=== PATIENT | male | born 1985 | race Caucasian/White ===

== ENCOUNTER 2020-02-29 19:18 | Inpatient (IN) | payer OTHER ==
[2020-02-29] MEDS ORDERED: Sodium Chloride 0.9% 1,000 ML IV ONE (19:45)
--- NOTE | 2020-02-29 20:05 | EDM.PDOC ---
ED HPI GENERAL MEDICAL PROBLEM - General Chief Complaint: General Stated Complaint: POSSIBLE HEATS STROKE Time Seen by Provider: 02/29/20 19:32 Source of Information: Reports: Patient History Limitations: Reports: No Limitations - History of Present Illness INITIAL COMMENTS - FREE TEXT/NARRATIVE: HISTORY AND PHYSICAL: History of present illness: Patient is a 35-year-old male who presents to the emergency room with complaints of fevers, nausea, body aches and generally feeling unwell. He states he was outside in the 90 degree heat for 16 hours during the workday yesterday when he started to feel unwell. States he went home and tried to drink fluids and get to bed early, woke up this morning with body aches and fevers of 99-103F. He is concerned he may have heatstroke. Patient denies any headache, change in vision, syncope or near syncope. Denies any chest pain, back pain, shortness of breath or cough. Denies any abdominal pain, vomiting, diarrhea, constipation or dysuria. Patient has been eating and drinking appropriately. No recent travel or exposure to anyone who is been ill. Review of systems: As per history of present illness and below otherwise all systems reviewed and negative. Past medical history: As per history of present illness and as reviewed below otherwise noncontributory. Surgical history: As per history of present illness and as reviewed below otherwise noncontributory. Social history: See social history for further information Family history: As per history of present illness and as reviewed below otherwise noncontributory. Physical exam: General: Well-developed and well-nourished 35-year-old male. Alert and oriented. Nontoxic-appearing and in no acute distress. HEENT: Atraumatic, normocephalic, pupils equal and reactive bilaterally, negative for conjunctival pallor or scleral icterus, mucous membranes moist, TMs normal bilaterally, throat clear, neck supple, nontender, trachea midline. No drooling or trismus noted. No meningeal signs. No hot potato voice noted. Lungs: Clear to auscultation, breath sounds equal bilaterally, chest nontender. Heart: S1S2, tachycardic in the 100s with regular rhythm without overt murmur Abdomen: Soft, obese, nontender. Negative for masses or hepatosplenomegaly. Mild bilateral costovertebral tenderness. Skin: Intact, warm, dry. No lesions or rashes noted. Hematologic: No petechiae or purpra. Mucosa appropriate color and normal nail bed color and refill. Extremities: Atraumatic, moves all extremities per self without difficulty or deficits, negative for cords or calf pain. Neurovascular unremarkable. Neuro: Awake, alert, oriented. Cranial nerves II through XII unremarkable. Cerebellum unremarkable. Motor and sensory unremarkable throughout. Exam nonfocal. Notes: Patient has a leukocytosis of 19.75. He has few bacteria with 18-22 WBC. Blood cultures have been added. I will do a CT of the abdomen and pelvis as he states he has generalized abdominal pain, very vague on my evaluation. COVID negative. Patient's temperature has elevated since arrival. 1300mg of Tylenol was last taken at 6 PM. We will give patient Rocephin IV, CT of the abdomen and pelvis results are pending. Since arrival the patient has been up multiple times to void, saying that the urinary frequency is new. Dr Ordonez was consulted on this case, agreeable to admission to receive IV abx. Dr Condon will watch for CT results and change disposition and consult specialty if needed. Diagnostics: CBC, CMP, CPK, UA, EKG, COVID-19 Therapeutics: IV fluid, Rocephin, Toradol Impression: UTI Plan: Observation admission to med/surg Definitive disposition and diagnosis as appropriate pending reevaluation and review of above. Generalized Pain Score (Numeric/FACES): 3 - Related Data Allergies Allergy/AdvReac Type Severity Reaction Status Date / Time No Known Allergies Allergy Verified 02/29/20 23:08 Home Meds: Home Meds Dextroamphetamine/Amphetamine [Adderall 10 mg Tablet] 30 mg PO DAILY 02/29/20 [History] levoFLOXacin [Levaquin] 750 mg PO DAILY #4 tab 03/02/20 [Rx] ED ROS GENERAL - Review of Systems Review Of Systems: Comprehensive ROS is negative, except as noted in HPI. ED EXAM, GENERAL - Physical Exam Exam: See Below (See dictation) Course - Vital Signs Last Recorded V/S: Last Vital Signs Temp 97.4 F 03/02/20 12:30 Pulse 85 03/02/20 12:30 Resp 16 03/02/20 12:30 BP 146/84 H 03/02/20 12:30 Pulse Ox 94 L 03/02/20 12:30 - Orders/Labs/Meds Labs: Laboratory Tests 02/29/20 02/29/20 02/29/20 Range/Units 19:55 20:00 20:00 WBC 19.75 H (4.0-11.0) K/uL RBC 4.87 (4.50-5.90) M/uL Hgb 14.2 (13.0-17.0) g/dL Hct 40.6 (38.0-50.0) % MCV 83.4 (80.0-98.0) fL MCH 29.2 (27.0-32.0) pg MCHC 35.0 (31.0-37.0) g/dL RDW Std Deviation 38.8 (28.0-62.0) fl RDW Coeff of Licha 13 (11.0-15.0) % Plt Count 243 (150-400) K/uL MPV 9.40 (7.40-12.00) fL Neut % (Auto) 83.6 H (48.0-80.0) % Lymph % (Auto) 9.3 L (16.0-40.0) % [place] % (Auto) 6.9 (0.0-15.0) % Eos % (Auto) 0.1 (0.0-7.0) % Baso % (Auto) 0.1 (0.0-1.5) % Neut # (Auto) 16.5 H (1.4-5.7) K/uL Lymph # (Auto) 1.8 (0.6-2.4) K/uL [place] # (Auto) 1.4 H (0.0-0.8) K/uL Eos # (Auto) 0.0 (0.0-0.7) K/uL Baso # (Auto) 0.0 (0.0-0.1) K/uL Nucleated RBC % 0.0 /100WBC Nucleated RBCs # 0 K/uL Lactate (0.20-2.00) mmol/L Sodium 132 L (136-148) mmol/L Potassium 4.3 (3.5-5.1) mmol/L Chloride 98 (98-107) mmol/L Carbon Dioxide 24.0 (21.0-32.0) mmol/L BUN 8 (7.0-18.0) mg/dL Creatinine 0.8 (0.8-1.3) mg/dL Est Cr Clr Drug Dosing 144.15 mL/min Estimated GFR (MDRD) > 60.0 ml/min Glucose 122 H (74-106) mg/dL Hemoglobin A1c (4.5-6.2) % Calcium 8.1 L (8.5-10.1) mg/dL Magnesium (1.8-2.4) mg/dL Total Bilirubin 1.0 (0.2-1.0) mg/dL AST 52 H (15-37) IU/L ALT 36 (14-63) IU/L Alkaline Phosphatase 56 (46-116) U/L Creatine Kinase 184 (26-308) U/L Total Protein 8.0 (6.4-8.2) g/dL Albumin 3.4 (3.4-5.0) g/dL Globulin 4.6 H (2.6-4.0) g/dL Albumin/Globulin Ratio 0.7 L (0.9-1.6) Urine Color YELLOW Urine Appearance SLT CLOUDY Urine pH 6.0 (5.0-8.0) Ur Specific [place] <= 1.005 (1.001-1.035) Urine Protein NEGATIVE (NEGATIVE) mg/dL Urine Glucose (UA) NEGATIVE (NEGATIVE) mg/dL Urine Ketones NEGATIVE (NEGATIVE) mg/dL Urine Occult Blood MODERATE H (NEGATIVE) Urine Nitrite NEGATIVE (NEGATIVE) Urine Bilirubin NEGATIVE (NEGATIVE) Urine Urobilinogen 0.2 (<2.0) EU/dL Ur Leukocyte Esterase MODERATE H (NEGATIVE) Urine RBC 0-2 (0-2/HPF) Urine WBC 18-22 (0-5/HPF) Ur Epithelial Cells RARE (NONE-FEW) Amorphous Sediment RARE (NEGATIVE) Urine Bacteria FEW (NEGATIVE) Urine Mucus RARE (NONE-MOD) Chlamydia/GC Source C.trachomatis RNA (TMA) (Negative) COVID-19 (JIM) (NEGATIVE) N.gonorrhoeae RNA (TMA) (Negative) 02/29/20 02/29/20 02/29/20 Range/Units 20:00 20:10 20:54 WBC (4.0-11.0) K/uL RBC (4.50-5.90) M/uL Hgb (13.0-17.0) g/dL Hct (38.0-50.0) % MCV (80.0-98.0) fL MCH (27.0-32.0) pg MCHC (31.0-37.0) g/dL RDW Std Deviation (28.0-62.0) fl RDW Coeff of Licha (11.0-15.0) % Plt Count (150-400) K/uL MPV (7.40-12.00) fL Neut % (Auto) (48.0-80.0) % Lymph % (Auto) (16.0-40.0) % [place] % (Auto) (0.0-15.0) % Eos % (Auto) (0.0-7.0) % Baso % (Auto) (0.0-1.5) % Neut # (Auto) (1.4-5.7) K/uL Lymph # (Auto) (0.6-2.4) K/uL [place] # (Auto) (0.0-0.8) K/uL Eos # (Auto) (0.0-0.7) K/uL Baso # (Auto) (0.0-0.1) K/uL Nucleated RBC % /100WBC Nucleated RBCs # K/uL Lactate 1.2 (0.20-2.00) mmol/L Sodium (136-148) mmol/L Potassium (3.5-5.1) mmol/L Chloride (98-107) mmol/L Carbon Dioxide (21.0-32.0) mmol/L BUN (7.0-18.0) mg/dL Creatinine (0.8-1.3) mg/dL Est Cr Clr Drug Dosing mL/min Estimated GFR (MDRD) ml/min Glucose (74-106) mg/dL Hemoglobin A1c (4.5-6.2) % Calcium (8.5-10.1) mg/dL Magnesium (1.8-2.4) mg/dL Total Bilirubin (0.2-1.0) mg/dL AST (15-37) IU/L ALT (14-63) IU/L Alkaline Phosphatase (46-116) U/L Creatine Kinase (26-308) U/L Total Protein (6.4-8.2) g/dL Albumin (3.4-5.0) g/dL Globulin (2.6-4.0) g/dL Albumin/Globulin Ratio (0.9-1.6) Urine Color Urine Appearance Urine pH (5.0-8.0) Ur Specific [place] (1.001-1.035) Urine Protein (NEGATIVE) mg/dL Urine Glucose (UA) (NEGATIVE) mg/dL Urine Ketones (NEGATIVE) mg/dL Urine Occult Blood (NEGATIVE) Urine Nitrite (NEGATIVE) Urine Bilirubin (NEGATIVE) Urine Urobilinogen (<2.0) EU/dL Ur Leukocyte Esterase (NEGATIVE) Urine RBC (0-2/HPF) Urine WBC (0-5/HPF) Ur Epithelial Cells (NONE-FEW) Amorphous Sediment (NEGATIVE) Urine Bacteria (NEGATIVE) Urine Mucus (NONE-MOD) Chlamydia/GC Source Urine C.trachomatis RNA (TMA) Negative (Negative) COVID-19 (JIM) NEGATIVE (NEGATIVE) N.gonorrhoeae RNA (TMA) Negative (Negative) 03/01/20 03/01/20 03/01/20 Range/Units 05:18 05:18 05:18 WBC 18.55 H (4.0-11.0) K/uL RBC 4.29 L (4.50-5.90) M/uL Hgb 12.4 L (13.0-17.0) g/dL Hct 36.1 L (38.0-50.0) % MCV 84.1 (80.0-98.0) fL MCH 28.9 (27.0-32.0) pg MCHC 34.3 (31.0-37.0) g/dL RDW Std Deviation 38.8 (28.0-62.0) fl RDW Coeff of Licha 13 (11.0-15.0) % Plt Count 210 (150-400) K/uL MPV 9.10 (7.40-12.00) fL Neut % (Auto) 83.0 H (48.0-80.0) % Lymph % (Auto) 9.2 L (16.0-40.0) % [place] % (Auto) 7.4 (0.0-15.0) % Eos % (Auto) 0.2 (0.0-7.0) % Baso % (Auto) 0.2 (0.0-1.5) % Neut # (Auto) 15.4 H (1.4-5.7) K/uL Lymph # (Auto) 1.7 (0.6-2.4) K/uL [place] # (Auto) 1.4 H (0.0-0.8) K/uL Eos # (Auto) 0.0 (0.0-0.7) K/uL Baso # (Auto) 0.0 (0.0-0.1) K/uL Nucleated RBC % /100WBC Nucleated RBCs # K/uL Lactate (0.20-2.00) mmol/L Sodium 135 L (136-148) mmol/L Potassium 2.9 L (3.5-5.1) mmol/L Chloride 99 (98-107) mmol/L Carbon Dioxide 25.8 (21.0-32.0) mmol/L BUN 7 (7.0-18.0) mg/dL Creatinine 1.0 (0.8-1.3) mg/dL Est Cr Clr Drug Dosing 111.90 mL/min Estimated GFR (MDRD) > 60.0 ml/min Glucose 119 H (74-106) mg/dL Hemoglobin A1c (4.5-6.2) % Calcium 7.3 L (8.5-10.1) mg/dL Magnesium 1.4 L (1.8-2.4) mg/dL Total Bilirubin (0.2-1.0) mg/dL AST (15-37) IU/L ALT (14-63) IU/L Alkaline Phosphatase (46-116) U/L Creatine Kinase 62 (26-308) U/L Total Protein (6.4-8.2) g/dL Albumin (3.4-5.0) g/dL Globulin (2.6-4.0) g/dL Albumin/Globulin Ratio (0.9-1.6) Urine Color Urine Appearance Urine pH (5.0-8.0) Ur Specific [place] (1.001-1.035) Urine Protein (NEGATIVE) mg/dL Urine Glucose (UA) (NEGATIVE) mg/dL Urine Ketones (NEGATIVE) mg/dL Urine Occult Blood (NEGATIVE) Urine Nitrite (NEGATIVE) Urine Bilirubin (NEGATIVE) Urine Urobilinogen (<2.0) EU/dL Ur Leukocyte Esterase (NEGATIVE) Urine RBC (0-2/HPF) Urine WBC (0-5/HPF) Ur Epithelial Cells (NONE-FEW) Amorphous Sediment (NEGATIVE) Urine Bacteria (NEGATIVE) Urine Mucus (NONE-MOD) Chlamydia/GC Source C.trachomatis RNA (TMA) (Negative) COVID-19 (JIM) (NEGATIVE) N.gonorrhoeae RNA (TMA) (Negative) 03/01/20 Range/Units 05:18 WBC (4.0-11.0) K/uL RBC (4.50-5.90) M/uL Hgb (13.0-17.0) g/dL Hct (38.0-50.0) % MCV (80.0-98.0) fL MCH (27.0-32.0) pg MCHC (31.0-37.0) g/dL RDW Std Deviation (28.0-62.0) fl RDW Coeff of Licha (11.0-15.0) % Plt Count (150-400) K/uL MPV (7.40-12.00) fL Neut % (Auto) (48.0-80.0) % Lymph % (Auto) (16.0-40.0) % [place] % (Auto) (0.0-15.0) % Eos % (Auto) (0.0-7.0) % Baso % (Auto) (0.0-1.5) % Neut # (Auto) (1.4-5.7) K/uL Lymph # (Auto) (0.6-2.4) K/uL [place] # (Auto) (0.0-0.8) K/uL Eos # (Auto) (0.0-0.7) K/uL Baso # (Auto) (0.0-0.1) K/uL Nucleated RBC % /100WBC Nucleated RBCs # K/uL Lactate (0.20-2.00) mmol/L Sodium (136-148) mmol/L Potassium (3.5-5.1) mmol/L Chloride (98-107) mmol/L Carbon Dioxide (21.0-32.0) mmol/L BUN (7.0-18.0) mg/dL Creatinine (0.8-1.3) mg/dL Est Cr Clr Drug Dosing mL/min Estimated GFR (MDRD) ml/min Glucose (74-106) mg/dL Hemoglobin A1c 5.7 (4.5-6.2) % Calcium (8.5-10.1) mg/dL Magnesium (1.8-2.4) mg/dL Total Bilirubin (0.2-1.0) mg/dL AST (15-37) IU/L ALT (14-63) IU/L Alkaline Phosphatase (46-116) U/L Creatine Kinase (26-308) U/L Total Protein (6.4-8.2) g/dL Albumin (3.4-5.0) g/dL Globulin (2.6-4.0) g/dL Albumin/Globulin Ratio (0.9-1.6) Urine Color Urine Appearance Urine pH (5.0-8.0) Ur Specific [place] (1.001-1.035) Urine Protein (NEGATIVE) mg/dL Urine Glucose (UA) (NEGATIVE) mg/dL Urine Ketones (NEGATIVE) mg/dL Urine Occult Blood (NEGATIVE) Urine Nitrite (NEGATIVE) Urine Bilirubin (NEGATIVE) Urine Urobilinogen (<2.0) EU/dL Ur Leukocyte Esterase (NEGATIVE) Urine RBC (0-2/HPF) Urine WBC (0-5/HPF) Ur Epithelial Cells (NONE-FEW) Amorphous Sediment (NEGATIVE) Urine Bacteria (NEGATIVE) Urine Mucus (NONE-MOD) Chlamydia/GC Source C.trachomatis RNA (TMA) (Negative) COVID-19 (JIM) (NEGATIVE) N.gonorrhoeae RNA (TMA) (Negative) Meds: Medications Discontinued Medications Generic Name Dose Route Start Last Admin Trade Name Freq PRN Reason Stop Dose Admin Acetaminophen 325 mg 02/29/20 23:32 03/02/20 11:10 Tylenol PO 325 mg Q6H PRN Administration Pain/Fever Docusate Sodium 100 mg 03/01/20 15:18 Colace PO DAILY PRN Constipation Sodium Chloride 1,000 mls @ 999 mls/hr 02/29/20 19:45 02/29/20 20:04 Normal Saline IV 02/29/20 20:45 999 mls/hr STAT ONE Administration Ciprofloxacin/Dextrose 400 mg/ 200 mls @ 200 mls/hr 02/29/20 21:30 Premix IV Q12H ZARINA Ceftriaxone Sodium/Dextrose 1 50 mls @ 100 mls/hr 02/29/20 21:29 02/29/20 22:09 gm/ Premix IV 02/29/20 21:58 100 mls/hr ONETIME ONE Administration Ceftriaxone Sodium/Dextrose 1 50 mls @ 100 mls/hr 03/01/20 10:00 gm/ Premix IV Q24H ZARINA Sodium Chloride 1,000 mls @ 125 mls/hr 02/29/20 23:45 03/02/20 10:53 Normal Saline IV 125 mls/hr ASDIRECTED ZARINA Administration Sodium Chloride 1,000 mls @ 999 mls/hr 03/01/20 00:30 03/01/20 00:49 Normal Saline IV 03/01/20 01:30 999 mls/hr BOLUS ONE Administration Potassium Chloride 40 meq/ 100 mls @ 25 mls/hr 03/01/20 06:45 03/01/20 07:46 Premix IV 03/01/20 10:44 Not Given ONETIME ONE Potassium Chloride 40 meq/ 100 mls @ 25 mls/hr 03/01/20 08:00 03/01/20 08:02 Premix IV 03/01/20 11:59 25 mls/hr ONETIME ONE Administration Magnesium Sulfate 4 gm/ Premix 100 mls @ 50 mls/hr 03/01/20 08:00 03/01/20 08:34 IV 03/01/20 09:59 Not Given ONETIME ONE Ceftriaxone Sodium/Dextrose 1 50 mls @ 100 mls/hr 03/01/20 21:00 gm/ Premix IV Q24H ZARINA Magnesium Sulfate 4 gm/ Premix 100 mls @ 50 mls/hr 03/01/20 12:00 03/01/20 13:56 IV 03/01/20 13:59 50 mls/hr ONETIME ONE Administration Lactated Ringer's 1,000 mls @ 999 mls/hr 03/01/20 10:40 03/01/20 10:58 Ringers, Lactated IV 03/01/20 11:40 999 mls/hr .BOLUS ONE Administration Ceftriaxone Sodium/Dextrose 2 50 mls @ 100 mls/hr 03/01/20 11:00 03/02/20 10:13 gm/ Premix IV 100 mls/hr Q24H ZARINA Administration Ibuprofen 400 mg 03/01/20 15:18 03/01/20 19:42 Motrin PO 400 mg Q6H PRN Administration Pain Iopamidol 100 ml 02/29/20 21:30 02/29/20 21:31 Isovue-370 (76%) IVPUSH 02/29/20 21:31 100 ml ONETIME STA Administration Ketorolac Tromethamine 30 mg 02/29/20 21:26 02/29/20 22:10 Toradol IVPUSH 02/29/20 21:27 30 mg ONETIME ONE Administration Ondansetron HCl 4 mg 03/01/20 15:18 Zofran IVPUSH Q4H PRN Nausea Potassium Chloride 40 meq 03/01/20 06:41 03/01/20 07:46 Klor-Con M20 PO 03/01/20 06:42 Not Given ONETIME ONE Potassium Chloride 40 meq 03/01/20 08:00 03/01/20 07:34 Klor-Con M20 PO 03/01/20 08:01 40 meq ONETIME ONE Administration Departure - Departure Time of Disposition: 12:38 Disposition: Refer to Observation Clinical Impression: Complicated UTI (urinary tract infection) - Discharge Information Sepsis Event Note (ED) - Evaluation Sepsis Screening Result: No Definite Risk
[2020-02-29 20:30] LABS: BLOOD UREA NITROGEN,BUN 8 mg/dL (7.0-18.0); CHLORIDE,CL 98 mmol/L (98-107); GLUCOSE RANDOM 122 mg/dL (74-106); POTASSIUM,K 4.3 mmol/L (3.5-5.1); SODIUM,NA 132 mmol/L (136-148)
[2020-02-29] MEDS ORDERED: Ketorolac 30 MG/ML SDV IVPUSH ONE (21:26)
[2020-02-29] MEDS ORDERED: cefTRIAXone 1 GM in Premix Bag 1 BAG IV ONE (21:29)
[2020-02-29] MEDS ORDERED: Iopamidol 755 Mg/ML 100 ML Bottle IVPUSH STA (21:30)
[2020-02-29] MEDS ORDERED: Ciprofloxacin in D5W 400 MG in Premix Bag 1 BAG IV SCH ×2 (21:30)
--- NOTE | 2020-02-29 22:04 | CT ---
Indication: Generalized abdominal pain, UTI, bilateral flank pain Technique: Contrast enhanced axial CT imaging through the abdomen and pelvis. 100 mL Isovue 370 contrast agent was administered intravenously. Sagittal and coronal reconstructions are provided. Comparison: None Findings: There is decreased attenuation of the liver parenchyma, suggesting steatosis. The portal vein, hepatic veins, and IVC patent. Cholecystectomy clips are noted. The spleen, pancreas, and adrenal glands are normal. There is normal renal enhancement without hydronephrosis. There is no perinephric edema or fluid collection. There is mild urinary bladder wall thickening, compatible with cystitis. There is normal caliber of the abdominal aorta. There is no abdominal lymphadenopathy. The stomach and duodenum are unremarkable. There are no abnormally dilated small bowel loops. The appendix is absent. There is no colonic wall thickening. No inflammatory changes are demonstrated in the mesentery. There is no free intraperitoneal fluid or air. The osseous structures are unremarkable. Impression: 1. Urinary bladder wall thickening, compatible cystitis. No findings to suggest pyelonephritis. 2. Decreased attenuation of the liver parenchyma, suggesting steatosis. Correlate with liver function tests. Please note that all CT scans at this facility use dose modulation, iterative reconstruction, and/or weight-based dosing when appropriate to reduce radiation dose to as low as reasonably achievable. Dictated by Lashay Duff MD @ Feb 29 2020 9:50PM Signed by Dr. Lashay Duff @ Feb 29 2020 10:02PM
[2020-02-29] MEDS: Sodium Chloride 0.9% 1,000 ML IV SCH (23:48)
--- NOTE | 2020-03-01 00:23 | PCM.HP.2 ---
H&P History of Present Illness - General Date of Service: 03/01/20 Admit Problem/Dx: Admission Diagnosis/Problem Admission Diagnosis/Problem UTI, Urinary tract infectious disease - History of Present Illness Initial Comments - Free Text/Narative: 35 yo male who presents with one day history of fevers. Patient thought he had heat stroke. 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 In the ED he was noted to have a leukocytosis, pyuria and CT scan reporting cystitis. Generalized Pain Score (Numeric/FACES): 3 - Related Data Allergies/Adverse Reactions: Allergies Allergy/AdvReac Type Severity Reaction Status Date / Time No Known Allergies Allergy Verified 02/29/20 23:08 Home Medications: Home Meds Dextroamphetamine/Amphetamine [Adderall 10 mg Tablet] 30 mg PO DAILY 02/29/20 [History] levoFLOXacin [Levaquin] 750 mg PO DAILY #4 tab 03/02/20 [Rx] Past Medical History Psychiatric History: Reports: ADD Endocrine/Metabolic History: Reports: Obesity/BMI 30+ - Infectious Disease History Infectious Disease History: Reports: Chicken Pox Social & Family History - Tobacco Use Smoking Status *Q: Never Smoker Second Hand Smoke Exposure: No - Caffeine Use Caffeine Use: Reports: Soda - Recreational Drug Use Recreational Drug Use: No H&P Review of Systems - Review of Systems: Review Of Systems: Comprehensive ROS is negative, except as noted in HPI. Exam - Exam Exam: See Below - Vital Signs Vital Signs: Last Vital Signs Temp 38.2 C H 02/29/20 23:00 Pulse 105 H 02/29/20 23:00 Resp 18 02/29/20 23:00 BP 137/81 02/29/20 23:00 Pulse Ox 97 02/29/20 23:00 Weight: 190.736 kg - Exam General: Alert, Oriented, Other (obese) HEENT: Mucosa Moist & Ro[place] Lungs: Clear to Auscultation, Normal Respiratory Effort Cardiovascular: Regular Rate, Regular Rhythm GI/Abdominal Exam: Normal Bowel Sounds, Soft, Non-Tender Extremities: Non-Tender, No Pedal Edema Skin: Warm, Dry - Patient Data Lab Results Last 24 hrs: Laboratory Results - last 24 hr 02/29/20 02/29/20 02/29/20 Range/Units 19:55 20:00 20:00 WBC 19.75 H (4.0-11.0) K/uL RBC 4.87 (4.50-5.90) M/uL Hgb 14.2 (13.0-17.0) g/dL Hct 40.6 (38.0-50.0) % MCV 83.4 (80.0-98.0) fL MCH 29.2 (27.0-32.0) pg MCHC 35.0 (31.0-37.0) g/dL RDW Std Deviation 38.8 (28.0-62.0) fl RDW Coeff of Licha 13 (11.0-15.0) % Plt Count 243 (150-400) K/uL MPV 9.40 (7.40-12.00) fL Neut % (Auto) 83.6 H (48.0-80.0) % Lymph % (Auto) 9.3 L (16.0-40.0) % [place] % (Auto) 6.9 (0.0-15.0) % Eos % (Auto) 0.1 (0.0-7.0) % Baso % (Auto) 0.1 (0.0-1.5) % Neut # (Auto) 16.5 H (1.4-5.7) K/uL Lymph # (Auto) 1.8 (0.6-2.4) K/uL [place] # (Auto) 1.4 H (0.0-0.8) K/uL Eos # (Auto) 0.0 (0.0-0.7) K/uL Baso # (Auto) 0.0 (0.0-0.1) K/uL Nucleated RBC % 0.0 /100WBC Nucleated RBCs # 0 K/uL Lactate (0.20-2.00) mmol/L Sodium 132 L (136-148) mmol/L Potassium 4.3 (3.5-5.1) mmol/L Chloride 98 (98-107) mmol/L Carbon Dioxide 24.0 (21.0-32.0) mmol/L BUN 8 (7.0-18.0) mg/dL Creatinine 0.8 (0.8-1.3) mg/dL Est Cr Clr Drug Dosing 144.15 mL/min Estimated GFR (MDRD) > 60.0 ml/min Glucose 122 H (74-106) mg/dL Calcium 8.1 L (8.5-10.1) mg/dL Total Bilirubin 1.0 (0.2-1.0) mg/dL AST 52 H (15-37) IU/L ALT 36 (14-63) IU/L Alkaline Phosphatase 56 (46-116) U/L Creatine Kinase 184 (26-308) U/L Total Protein 8.0 (6.4-8.2) g/dL Albumin 3.4 (3.4-5.0) g/dL Globulin 4.6 H (2.6-4.0) g/dL Albumin/Globulin Ratio 0.7 L (0.9-1.6) Urine Color YELLOW Urine Appearance SLT CLOUDY Urine pH 6.0 (5.0-8.0) Ur Specific [place] <= 1.005 (1.001-1.035) Urine Protein NEGATIVE (NEGATIVE) mg/dL Urine Glucose (UA) NEGATIVE (NEGATIVE) mg/dL Urine Ketones NEGATIVE (NEGATIVE) mg/dL Urine Occult Blood MODERATE H (NEGATIVE) Urine Nitrite NEGATIVE (NEGATIVE) Urine Bilirubin NEGATIVE (NEGATIVE) Urine Urobilinogen 0.2 (<2.0) EU/dL Ur Leukocyte Esterase MODERATE H (NEGATIVE) Urine RBC 0-2 (0-2/HPF) Urine WBC 18-22 (0-5/HPF) Ur Epithelial Cells RARE (NONE-FEW) Amorphous Sediment RARE (NEGATIVE) Urine Bacteria FEW (NEGATIVE) Urine Mucus RARE (NONE-MOD) COVID-19 (JIM) (NEGATIVE) 02/29/20 02/29/20 Range/Units 20:10 20:54 WBC (4.0-11.0) K/uL RBC (4.50-5.90) M/uL Hgb (13.0-17.0) g/dL Hct (38.0-50.0) % MCV (80.0-98.0) fL MCH (27.0-32.0) pg MCHC (31.0-37.0) g/dL RDW Std Deviation (28.0-62.0) fl RDW Coeff of Licha (11.0-15.0) % Plt Count (150-400) K/uL MPV (7.40-12.00) fL Neut % (Auto) (48.0-80.0) % Lymph % (Auto) (16.0-40.0) % [place] % (Auto) (0.0-15.0) % Eos % (Auto) (0.0-7.0) % Baso % (Auto) (0.0-1.5) % Neut # (Auto) (1.4-5.7) K/uL Lymph # (Auto) (0.6-2.4) K/uL [place] # (Auto) (0.0-0.8) K/uL Eos # (Auto) (0.0-0.7) K/uL Baso # (Auto) (0.0-0.1) K/uL Nucleated RBC % /100WBC Nucleated RBCs # K/uL Lactate 1.2 (0.20-2.00) mmol/L Sodium (136-148) mmol/L Potassium (3.5-5.1) mmol/L Chloride (98-107) mmol/L Carbon Dioxide (21.0-32.0) mmol/L BUN (7.0-18.0) mg/dL Creatinine (0.8-1.3) mg/dL Est Cr Clr Drug Dosing mL/min Estimated GFR (MDRD) ml/min Glucose (74-106) mg/dL Calcium (8.5-10.1) mg/dL Total Bilirubin (0.2-1.0) mg/dL AST (15-37) IU/L ALT (14-63) IU/L Alkaline Phosphatase (46-116) U/L Creatine Kinase (26-308) U/L Total Protein (6.4-8.2) g/dL Albumin (3.4-5.0) g/dL Globulin (2.6-4.0) g/dL Albumin/Globulin Ratio (0.9-1.6) Urine Color Urine Appearance Urine pH (5.0-8.0) Ur Specific [place] (1.001-1.035) Urine Protein (NEGATIVE) mg/dL Urine Glucose (UA) (NEGATIVE) mg/dL Urine Ketones (NEGATIVE) mg/dL Urine Occult Blood (NEGATIVE) Urine Nitrite (NEGATIVE) Urine Bilirubin (NEGATIVE) Urine Urobilinogen (<2.0) EU/dL Ur Leukocyte Esterase (NEGATIVE) Urine RBC (0-2/HPF) Urine WBC (0-5/HPF) Ur Epithelial Cells (NONE-FEW) Amorphous Sediment (NEGATIVE) Urine Bacteria (NEGATIVE) Urine Mucus (NONE-MOD) COVID-19 (JIM) NEGATIVE (NEGATIVE) Result Diagrams: 03/02/20 05:28 03/02/20 05:28 Sepsis Event Note - Evaluation Sepsis Screening Result: No Definite Risk - Focused Exam Vital Signs: Vital Signs Temp Pulse Resp BP BP Pulse Ox 02/29/20 23:00 38.2 C H 105 H 18 137/81 97 02/29/20 22:40 38.9 C H 104 H 18 125/75 99 02/29/20 21:28 39.1 C H 106 H 16 123/86 98 02/29/20 19:35 38.5 C H 104 H 20 124/65 99 Problem List Initiated/Reviewed/Updated: Yes Orders Last 24hrs: Active Orders 24 hr Category Date Time Status Admission Status [Patient Status] [ADT] Stat ADT 02/29/20 21:43 Active Antiembolic Devices [RC] PER UNIT ROUTINE Care 03/01/20 00:18 Ordered EKG Documentation Completion [RC] STAT Care 02/29/20 19:45 Active Oxygen Therapy [RC] PRN Care 03/01/20 00:17 Ordered Up ad Cheryl [RC] ASDIRECTED Care 03/01/20 00:17 Ordered VTE/DVT Education [RC] PER UNIT ROUTINE Care 03/01/20 00:17 Ordered Vital Signs [RC] Q4H Care 03/01/20 00:17 Ordered Regular Diet [DIET] Diet 03/01/20 Breakfast Active BASIC METABOLIC PANEL,BMP [CHEM] Routine Lab 03/01/20 05:11 Ordered CBC WITH AUTO DIFF [HEME] Routine Lab 03/01/20 05:11 Ordered CULTURE BLOOD [BC] Stat Lab 02/29/20 20:45 Received CULTURE BLOOD [BC] Stat Lab 02/29/20 20:54 Received CULTURE URINE [RM] Stat Lab 02/29/20 19:55 Received Acetaminophen [Tylenol] Med 02/29/20 23:32 Active 325 mg PO Q6H PRN Sodium Chloride 0.9% [Normal Saline] 1,000 ml Med 02/29/20 23:45 Active IV ASDIRECTED Sodium Chloride 0.9% [Normal Saline] 1,000 ml Med 03/01/20 00:30 Ordered IV BOLUS cefTRIAXone [Rocephin in Dextrose,Iso-Osm 1 GM/50 ML] 1 Med 03/01/20 10:00 Active gm Premix Bag 1 bag IV Q24H Blood Culture x2 Reflex Set [OM.PC] Stat Oth 02/29/20 20:26 Ordered Sequential Compression Device [OM.PC] Per Unit Routine Oth 03/01/20 00:17 Ordered Resuscitation Status Routine Resus Stat 03/01/20 00:17 Ordered Medication Orders Acetaminophen (Tylenol) 325 mg PO Q6H PRN PRN Reason: Pain/Fever Ceftriaxone Sodium/Dextrose 1 (gm/ Premix) 50 mls @ 100 mls/hr IV Q24H ZARINA Sodium Chloride (Normal Saline) 1,000 mls @ 125 mls/hr IV ASDIRECTED ZARINA Last Admin: 02/29/20 23:48 Dose: 125 mls/hr Documented by: JOE Assessment/Plan Comment:: 35 yo male admitted for cystitis. We are treating with Rocephin. Urine cultures pending.
[2020-03-01] MEDS ORDERED: Sodium Chloride 0.9% 1,000 ML IV ONE (00:30)
[2020-03-01 06:21] LABS: BLOOD UREA NITROGEN,BUN 7 mg/dL (7.0-18.0); CARBON DIOXIDE,CO2 25.8 mmol/L (21.0-32.0); CHLORIDE,CL 99 mmol/L (98-107); GLUCOSE RANDOM 119 mg/dL (74-106); POTASSIUM,K 2.9 mmol/L (3.5-5.1); SODIUM,NA 135 mmol/L (136-148)
[2020-03-01] MEDS ORDERED: Potassium Chloride 20 MEQ Tab.ER PO ONE ×2 (06:41→08:00)
[2020-03-01] MEDS ORDERED: Potassium Chloride Riders 40 MEQ in Premix Bag 1 BAG IV ONE ×2 (06:45→08:00)
[2020-03-01] MEDS: Acetaminophen 325 MG Tab PO PRN ×3 (08:00→21:52)
[2020-03-01] MEDS ORDERED: Magnesium Sulfate/Water 4 GM in Premix Bag 1 BAG IV ONE ×2 (08:00→12:00)
[2020-03-01] MEDS: Sodium Chloride 0.9% 1,000 ML IV SCH ×2 (08:01→19:00)
--- NOTE | 2020-03-01 08:11 | PCM.PN ---
- General Info Date of Service: 03/01/20 Admission Dx/Problem (Free Text): Admission Diagnosis/Problem Admission Diagnosis/Problem UTI, Urinary tract infectious disease Subjective Update: Continues to have fevers this morning, feeling a little improved from last nigh t. Still has general malaise. NO chest pain or SOB. No diarrhea, feels mildly constipated. No penile drainage. Mild dysuria and lower abdominal pain. Functional Status: Reports: Pain Controlled, Tolerating Diet, Ambulating, Urinating - Review of Systems General: Reports: Fatigue, Malaise HEENT: Reports: No Symptoms. Denies: Headaches, Sore Throat, Visual Changes Pulmonary: Reports: No Symptoms. Denies: Shortness of Breath Cardiovascular: Reports: No Symptoms. Denies: Chest Pain Gastrointestinal: Reports: Abdominal Pain (lower abdominal pain), Constipation, Other (denies deep rectal or perineal pain or tenderness). Denies: Diarrhea, Nausea, Vomiting Genitourinary: Reports: Dysuria, Burning. Denies: Frequency, Incontinence, Hematuria, Retention, Flank Pain Musculoskeletal: Reports: No Symptoms Skin: Reports: No Symptoms Neurological: Reports: No Symptoms Psychiatric: Reports: No Symptoms - Patient Data Vitals - Most Recent: Last Vital Signs Temp 100.9 F H 03/01/20 08:00 Pulse 101 H 03/01/20 07:47 Resp 18 03/01/20 07:47 BP 142/78 H 03/01/20 07:47 Pulse Ox 95 03/01/20 07:47 Weight - Most Recent: 190.736 kg I&O - Last 24 Hours: Intake & Output 02/29/20 03/01/20 03/01/20 22:59 06:59 14:59 Intake Total 2084 Output Total 250 Balance 1834 Lab Results Last 24 Hours: Laboratory Results - last 24 hr 02/29/20 02/29/20 02/29/20 Range/Units 19:55 20:00 20:00 WBC 19.75 H (4.0-11.0) K/uL RBC 4.87 (4.50-5.90) M/uL Hgb 14.2 (13.0-17.0) g/dL Hct 40.6 (38.0-50.0) % MCV 83.4 (80.0-98.0) fL MCH 29.2 (27.0-32.0) pg MCHC 35.0 (31.0-37.0) g/dL RDW Std Deviation 38.8 (28.0-62.0) fl RDW Coeff of Licha 13 (11.0-15.0) % Plt Count 243 (150-400) K/uL MPV 9.40 (7.40-12.00) fL Neut % (Auto) 83.6 H (48.0-80.0) % Lymph % (Auto) 9.3 L (16.0-40.0) % [place] % (Auto) 6.9 (0.0-15.0) % Eos % (Auto) 0.1 (0.0-7.0) % Baso % (Auto) 0.1 (0.0-1.5) % Neut # (Auto) 16.5 H (1.4-5.7) K/uL Lymph # (Auto) 1.8 (0.6-2.4) K/uL [place] # (Auto) 1.4 H (0.0-0.8) K/uL Eos # (Auto) 0.0 (0.0-0.7) K/uL Baso # (Auto) 0.0 (0.0-0.1) K/uL Nucleated RBC % 0.0 /100WBC Nucleated RBCs # 0 K/uL Lactate (0.20-2.00) mmol/L Sodium 132 L (136-148) mmol/L Potassium 4.3 (3.5-5.1) mmol/L Chloride 98 (98-107) mmol/L Carbon Dioxide 24.0 (21.0-32.0) mmol/L BUN 8 (7.0-18.0) mg/dL Creatinine 0.8 (0.8-1.3) mg/dL Est Cr Clr Drug Dosing 144.15 mL/min Estimated GFR (MDRD) > 60.0 ml/min Glucose 122 H (74-106) mg/dL Calcium 8.1 L (8.5-10.1) mg/dL Magnesium (1.8-2.4) mg/dL Total Bilirubin 1.0 (0.2-1.0) mg/dL AST 52 H (15-37) IU/L ALT 36 (14-63) IU/L Alkaline Phosphatase 56 (46-116) U/L Creatine Kinase 184 (26-308) U/L Total Protein 8.0 (6.4-8.2) g/dL Albumin 3.4 (3.4-5.0) g/dL Globulin 4.6 H (2.6-4.0) g/dL Albumin/Globulin Ratio 0.7 L (0.9-1.6) Urine Color YELLOW Urine Appearance SLT CLOUDY Urine pH 6.0 (5.0-8.0) Ur Specific [place] <= 1.005 (1.001-1.035) Urine Protein NEGATIVE (NEGATIVE) mg/dL Urine Glucose (UA) NEGATIVE (NEGATIVE) mg/dL Urine Ketones NEGATIVE (NEGATIVE) mg/dL Urine Occult Blood MODERATE H (NEGATIVE) Urine Nitrite NEGATIVE (NEGATIVE) Urine Bilirubin NEGATIVE (NEGATIVE) Urine Urobilinogen 0.2 (<2.0) EU/dL Ur Leukocyte Esterase MODERATE H (NEGATIVE) Urine RBC 0-2 (0-2/HPF) Urine WBC 18-22 (0-5/HPF) Ur Epithelial Cells RARE (NONE-FEW) Amorphous Sediment RARE (NEGATIVE) Urine Bacteria FEW (NEGATIVE) Urine Mucus RARE (NONE-MOD) COVID-19 (JIM) (NEGATIVE) 02/29/20 02/29/20 03/01/20 Range/Units 20:10 20:54 05:18 WBC 18.55 H (4.0-11.0) K/uL RBC 4.29 L (4.50-5.90) M/uL Hgb 12.4 L (13.0-17.0) g/dL Hct 36.1 L (38.0-50.0) % MCV 84.1 (80.0-98.0) fL MCH 28.9 (27.0-32.0) pg MCHC 34.3 (31.0-37.0) g/dL RDW Std Deviation 38.8 (28.0-62.0) fl RDW Coeff of Licha 13 (11.0-15.0) % Plt Count 210 (150-400) K/uL MPV 9.10 (7.40-12.00) fL Neut % (Auto) 83.0 H (48.0-80.0) % Lymph % (Auto) 9.2 L (16.0-40.0) % [place] % (Auto) 7.4 (0.0-15.0) % Eos % (Auto) 0.2 (0.0-7.0) % Baso % (Auto) 0.2 (0.0-1.5) % Neut # (Auto) 15.4 H (1.4-5.7) K/uL Lymph # (Auto) 1.7 (0.6-2.4) K/uL [place] # (Auto) 1.4 H (0.0-0.8) K/uL Eos # (Auto) 0.0 (0.0-0.7) K/uL Baso # (Auto) 0.0 (0.0-0.1) K/uL Nucleated RBC % /100WBC Nucleated RBCs # K/uL Lactate 1.2 (0.20-2.00) mmol/L Sodium (136-148) mmol/L Potassium (3.5-5.1) mmol/L Chloride (98-107) mmol/L Carbon Dioxide (21.0-32.0) mmol/L BUN (7.0-18.0) mg/dL Creatinine (0.8-1.3) mg/dL Est Cr Clr Drug Dosing mL/min Estimated GFR (MDRD) ml/min Glucose (74-106) mg/dL Calcium (8.5-10.1) mg/dL Magnesium (1.8-2.4) mg/dL Total Bilirubin (0.2-1.0) mg/dL AST (15-37) IU/L ALT (14-63) IU/L Alkaline Phosphatase (46-116) U/L Creatine Kinase (26-308) U/L Total Protein (6.4-8.2) g/dL Albumin (3.4-5.0) g/dL Globulin (2.6-4.0) g/dL Albumin/Globulin Ratio (0.9-1.6) Urine Color Urine Appearance Urine pH (5.0-8.0) Ur Specific [place] (1.001-1.035) Urine Protein (NEGATIVE) mg/dL Urine Glucose (UA) (NEGATIVE) mg/dL Urine Ketones (NEGATIVE) mg/dL Urine Occult Blood (NEGATIVE) Urine Nitrite (NEGATIVE) Urine Bilirubin (NEGATIVE) Urine Urobilinogen (<2.0) EU/dL Ur Leukocyte Esterase (NEGATIVE) Urine RBC (0-2/HPF) Urine WBC (0-5/HPF) Ur Epithelial Cells (NONE-FEW) Amorphous Sediment (NEGATIVE) Urine Bacteria (NEGATIVE) Urine Mucus (NONE-MOD) COVID-19 (JIM) NEGATIVE (NEGATIVE) 03/01/20 03/01/20 Range/Units 05:18 05:18 WBC (4.0-11.0) K/uL RBC (4.50-5.90) M/uL Hgb (13.0-17.0) g/dL Hct (38.0-50.0) % MCV (80.0-98.0) fL MCH (27.0-32.0) pg MCHC (31.0-37.0) g/dL RDW Std Deviation (28.0-62.0) fl RDW Coeff of Licha (11.0-15.0) % Plt Count (150-400) K/uL MPV (7.40-12.00) fL Neut % (Auto) (48.0-80.0) % Lymph % (Auto) (16.0-40.0) % [place] % (Auto) (0.0-15.0) % Eos % (Auto) (0.0-7.0) % Baso % (Auto) (0.0-1.5) % Neut # (Auto) (1.4-5.7) K/uL Lymph # (Auto) (0.6-2.4) K/uL [place] # (Auto) (0.0-0.8) K/uL Eos # (Auto) (0.0-0.7) K/uL Baso # (Auto) (0.0-0.1) K/uL Nucleated RBC % /100WBC Nucleated RBCs # K/uL Lactate (0.20-2.00) mmol/L Sodium 135 L (136-148) mmol/L Potassium 2.9 L (3.5-5.1) mmol/L Chloride 99 (98-107) mmol/L Carbon Dioxide 25.8 (21.0-32.0) mmol/L BUN 7 (7.0-18.0) mg/dL Creatinine 1.0 (0.8-1.3) mg/dL Est Cr Clr Drug Dosing 111.90 mL/min Estimated GFR (MDRD) > 60.0 ml/min Glucose 119 H (74-106) mg/dL Calcium 7.3 L (8.5-10.1) mg/dL Magnesium 1.4 L (1.8-2.4) mg/dL Total Bilirubin (0.2-1.0) mg/dL AST (15-37) IU/L ALT (14-63) IU/L Alkaline Phosphatase (46-116) U/L Creatine Kinase 62 (26-308) U/L Total Protein (6.4-8.2) g/dL Albumin (3.4-5.0) g/dL Globulin (2.6-4.0) g/dL Albumin/Globulin Ratio (0.9-1.6) Urine Color Urine Appearance Urine pH (5.0-8.0) Ur Specific [place] (1.001-1.035) Urine Protein (NEGATIVE) mg/dL Urine Glucose (UA) (NEGATIVE) mg/dL Urine Ketones (NEGATIVE) mg/dL Urine Occult Blood (NEGATIVE) Urine Nitrite (NEGATIVE) Urine Bilirubin (NEGATIVE) Urine Urobilinogen (<2.0) EU/dL Ur Leukocyte Esterase (NEGATIVE) Urine RBC (0-2/HPF) Urine WBC (0-5/HPF) Ur Epithelial Cells (NONE-FEW) Amorphous Sediment (NEGATIVE) Urine Bacteria (NEGATIVE) Urine Mucus (NONE-MOD) COVID-19 (JIM) (NEGATIVE) Med Orders - Current: Current Medications Acetaminophen (Tylenol) 325 mg PO Q6H PRN PRN Reason: Pain/Fever Last Admin: 03/01/20 08:00 Dose: 325 mg Documented by: Ceftriaxone Sodium/Dextrose 1 (gm/ Premix) 50 mls @ 100 mls/hr IV Q24H [facility] Sodium Chloride (Normal Saline) 1,000 mls @ 125 mls/hr IV ASDIRECTED [facility] Last Admin: 03/01/20 08:01 Dose: 125 mls/hr Documented by: Potassium Chloride 40 meq/ (Premix) 100 mls @ 25 mls/hr IV ONETIME ONE Stop: 03/01/20 11:59 Last Admin: 03/01/20 08:02 Dose: 25 mls/hr Documented by: Magnesium Sulfate 4 gm/ Premix 100 mls @ 50 mls/hr IV ONETIME ONE Stop: 03/01/20 09:59 Discontinued Medications Sodium Chloride (Normal Saline) 1,000 mls @ 999 mls/hr IV STAT ONE Stop: 02/29/20 20:45 Last Admin: 02/29/20 20:04 Dose: 999 mls/hr Documented by: Ciprofloxacin/Dextrose 400 mg/ (Premix) 200 mls @ 200 mls/hr IV Q12H ZARINA Ceftriaxone Sodium/Dextrose 1 (gm/ Premix) 50 mls @ 100 mls/hr IV ONETIME ONE Stop: 02/29/20 21:58 Last Admin: 02/29/20 22:09 Dose: 100 mls/hr Documented by: Sodium Chloride (Normal Saline) 1,000 mls @ 999 mls/hr IV BOLUS ONE Stop: 03/01/20 01:30 Last Admin: 03/01/20 00:49 Dose: 999 mls/hr Documented by: Potassium Chloride 40 meq/ (Premix) 100 mls @ 25 mls/hr IV ONETIME ONE Stop: 03/01/20 10:44 Last Admin: 03/01/20 07:46 Dose: Not Given Documented by: Iopamidol (Isovue-370 (76%)) 100 ml IVPUSH ONETIME STA Stop: 02/29/20 21:31 Last Admin: 02/29/20 21:31 Dose: 100 ml Documented by: Ketorolac Tromethamine (Toradol) 30 mg IVPUSH ONETIME ONE Stop: 02/29/20 21:27 Last Admin: 02/29/20 22:10 Dose: 30 mg Documented by: Potassium Chloride (Klor-Con M20) 40 meq PO ONETIME ONE Stop: 03/01/20 06:42 Last Admin: 03/01/20 07:46 Dose: Not Given Documented by: Potassium Chloride (Klor-Con M20) 40 meq PO ONETIME ONE Stop: 03/01/20 08:01 Last Admin: 03/01/20 07:34 Dose: 40 meq Documented by: - Exam General: Alert, Oriented, Cooperative, No Acute Distress, Other (diaphoretic in room, reports feeling warm.) Lungs: Clear to Auscultation, Normal Respiratory Effort Cardiovascular: Regular Rate, Regular Rhythm GI/Abdominal Exam: Normal Bowel Sounds, Soft, Tender (lower abdomen) Back Exam: Normal Inspection, Full Range of Motion. No: CVA Tenderness (L), CVA Tenderness (R) Extremities: Normal Inspection, Normal Range of Motion, Non-Tender, No Pedal Edema Wound/Incisions: Healing Well Neurological: No New Focal Deficit Psy/Mental Status: Alert, Normal Affect, Normal Mood Sepsis Event Note - Evaluation Sepsis Screening Result: No Definite Risk - Focused Exam Vital Signs: Vital Signs Temp Temp Temp Pulse Resp BP BP 03/01/20 08:00 100.9 F H 03/01/20 07:47 100.9 F H 99 F 101 H 18 142/78 H 03/01/20 04:30 100.7 F H 99.3 F 93 18 104/60 02/29/20 23:00 100.8 F H 105 H 18 137/81 02/29/20 22:40 102.0 F H 104 H 18 125/75 02/29/20 21:28 102.3 F H 106 H 16 123/86 Pulse Ox 03/01/20 08:00 03/01/20 07:47 95 03/01/20 04:30 94 L 02/29/20 23:00 97 02/29/20 22:40 99 02/29/20 21:28 98 - Problem List & Annotations (1) Sepsis SNOMED Code(s): 47801922 Code(s): A41.9 - SEPSIS, UNSPECIFIED ORGANISM Status: Acute Current V isit: Yes (2) Cystitis SNOMED Code(s): 06083699 Code(s): N30.90 - CYSTITIS, UNSPECIFIED WITHOUT HEMATURIA Status: Acute Current Visit: Yes (3) ADHD SNOMED Code(s): 199767627 Code(s): F90.9 - ATTENTION-DEFICIT HYPERACTIVITY DISORDER, UNSPECIFIED TYPE Status: Chronic Current Visit: Yes (4) Morbid obesity with BMI of 50.0-59.9, adult SNOMED Code(s): 977772620, 87754831544846 Code(s): E66.01 - MORBID (SEVERE) OBESITY DUE TO EXCESS CALORIES; Z68.43 - BODY MASS INDEX (BMI) 50.0-59.9, ADULT Status: Chronic Current Visit: Yes (5) Complicated UTI (urinary tract infection) SNOMED Code(s): 78996459 Code(s): N39.0 - URINARY TRACT INFECTION, SITE NOT SPECIFIED Status: Acute Current Visit: Yes - Problem List Review Problem List Initiated/Reviewed/Updated: Yes - My Orders Last 24 Hours: My Active Orders 03/01/20 08:00 Magnesium Sulfate/Water [Magnesium Sulfate in Water Premix] 4 gm Premix Bag 1 bag IV ONETIME - Plan Plan:: 35 yo male admitted for sepsis and cystitis 1. Sepsis and Acute cystitis, complicated UTI - Give 1 L LR bolus this morning - Denies recent change in sexual partners, no penile drainage. - Will send urine for G/C - UC pending - Rocephin 2 gm IV daily - Check A1c due to elevated BS, A1c 5.7 - Continues to have fevers, would like to have him afebrile for 24hrs prior to DC - Dr Ordonez performed prostate exam, no exquisite tenderness or bogginess noted. VTE prophylaxis: SCDs and ambulation Dispo: Will make inpatient due sepsis and need for greater than 2 midnights
[2020-03-01 09:23] LABS: HEMOGLOBIN A1C 5.7 % (4.5-6.2)
[2020-03-01] MEDS ORDERED: cefTRIAXone 1 GM in Premix Bag 1 BAG IV SCH ×2 (10:00→21:00)
[2020-03-01] MEDS ORDERED: Lactated Ringers 1,000 ML IV ONE (10:40)
[2020-03-01] MEDS: cefTRIAXone 2 GM in Premix Bag 1 BAG IV SCH (12:54)
[2020-03-01] MEDS ORDERED: Ibuprofen 400 MG Tab PO PRN (15:18)
[2020-03-01] MEDS ORDERED: Docusate Sodium 100 MG Cap PO PRN (15:18)
[2020-03-01] MEDS ORDERED: Ondansetron 4 MG/2 ML SDV IVPUSH PRN (15:18)
[2020-03-01 15:26] LABS: BLOOD UREA NITROGEN,BUN 9 mg/dL (7.0-18.0); CARBON DIOXIDE,CO2 27.6 mmol/L (21.0-32.0); CHLORIDE,CL 100 mmol/L (98-107); GLUCOSE RANDOM 110 mg/dL (74-106); POTASSIUM,K 3.7 mmol/L (3.5-5.1); SODIUM,NA 134 mmol/L (136-148)
[2020-03-02] MEDS: Sodium Chloride 0.9% 1,000 ML IV SCH ×2 (03:03→10:53)
[2020-03-02 06:14] LABS: BLOOD UREA NITROGEN,BUN 8 mg/dL (7.0-18.0); CHLORIDE,CL 105 mmol/L (98-107); GLUCOSE RANDOM 95 mg/dL (74-106); POTASSIUM,K 3.6 mmol/L (3.5-5.1); SODIUM,NA 139 mmol/L (136-148)
[2020-03-02] MEDS: cefTRIAXone 2 GM in Premix Bag 1 BAG IV SCH (10:13)
[2020-03-02] MEDS: Acetaminophen 325 MG Tab PO PRN (11:10)
--- NOTE | 2020-03-02 14:03 | PCM.DCSUM1 ---
Discharge Summary - Hospital Course Brief History: 35 yo male who presents with one day history of fevers. Patient thought he had heat stroke. 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 In the ED he was noted to have a leukocytosis, pyuria and CT scan reporting cystitis. Diagnosis: Stroke: No - Discharge Data Discharge Date: 03/02/20 Discharge Disposition: Home, Self-Care 01 Condition: Good - Referral to Home Health Primary Care Physician: PCP None - Discharge Diagnosis/Problem(s) (1) Sepsis SNOMED Code(s): 21908921 ICD Code: A41.9 - SEPSIS, UNSPECIFIED ORGANISM Status: Acute Current Visit: Yes (2) Cystitis SNOMED Code(s): 65355233 ICD Code: N30.90 - CYSTITIS, UNSPECIFIED WITHOUT HEMATURIA Status: Acute Current Visit: Yes (3) ADHD SNOMED Code(s): 624755954 ICD Code: F90.9 - ATTENTION-DEFICIT HYPERACTIVITY DISORDER, UNSPECIFIED TYPE Status: Chronic Current Visit: Yes (4) Morbid obesity with BMI of 50.0-59.9, adult SNOMED Code(s): 473556762, 15832886117501 ICD Code: E66.01 - MORBID (SEVERE) OBESITY DUE TO EXCESS CALORIES; Z68.43 - BODY MASS INDEX (BMI) 50.0-59.9, ADULT Status: Chronic Current Visit: Yes (5) Complicated UTI (urinary tract infection) SNOMED Code(s): 06151515 ICD Code: N39.0 - URINARY TRACT INFECTION, SITE NOT SPECIFIED Status: Acute Current Visit: Yes - Patient Summary/Data Hospital Course: Admitting Diagnoses: sepsis UTI, cystitis Discharge Diagnoses: sepsis UTI, cystitis Renaldo was admitted for sepsis secondary to UTI. He was treated with Rocephin. BC and UC obtained. Uc returned with hemphill sensitive E coli. Prostate exam completed which was benign. He was screened for DM type2, which A1c was 5.7. BC remained negative. He remained afebrile for 24 hours and is feeling much improved today. He is eager for discharge home. We discussed weight management and hygiene to limit reoccurrence. G/C pending on discharge. He will be sent home on Levaquin 750 mg daily for 4 more days. He is to return to ED or clinic if symptoms or concerns arise. Follow up with PCP in 1-2 week. - Patient Instructions Diet: Regular Diet as Tolerated Activity: As Tolerated, Rest and Relax Today Driving: May Drive Today Notify Provider of: Fever, Increased Pain, Swelling and Redness, Drainage, Nausea and/or Vomiting - Discharge Plan *PRESCRIPTION DRUG MONITORING PROGRAM REVIEWED*: Not Applicable *COPY OF PRESCRIPTION DRUG MONITORING REPORT IN PATIENT GLORIA: Not Applicable Prescriptions/Med Rec: levoFLOXacin [Levaquin] 750 mg PO DAILY #4 tab Home Medications: Home Meds Dextroamphetamine/Amphetamine [Adderall 10 mg Tablet] 30 mg PO DAILY 02/29/20 [History] levoFLOXacin [Levaquin] 750 mg PO DAILY #4 tab 03/02/20 [Rx] Oxygen Therapy Mode: Room Air Referrals: Brandon Ruggiero MD [Physician] - 03/19/20 9:30 am - Discharge Summary/Plan Comment DC Time >30 min.: No - Patient Data Vitals - Most Recent: Last Vital Signs Temp 97.4 F 03/02/20 12:30 Pulse 85 03/02/20 12:30 Resp 16 03/02/20 12:30 BP 146/84 H 03/02/20 12:30 Pulse Ox 94 L 03/02/20 12:30 Weight - Most Recent: 190.736 kg I&O - Last 24 hours: Intake & Output 03/01/20 03/02/20 03/02/20 22:59 06:59 14:59 Intake Total 2240 4930 50 Output Total 2300 Balance 2240 2630 50 Lab Results - Last 24 hrs: Laboratory Results - last 24 hr 03/01/20 03/02/20 03/02/20 Range/Units 14:35 05:28 05:28 WBC 11.40 H (4.0-11.0) K/uL RBC 4.27 L (4.50-5.90) M/uL Hgb 11.9 L (13.0-17.0) g/dL Hct 36.5 L (38.0-50.0) % MCV 85.5 (80.0-98.0) fL MCH 27.9 (27.0-32.0) pg MCHC 32.6 (31.0-37.0) g/dL RDW Std Deviation 40.1 (28.0-62.0) fl RDW Coeff of Licha 13 (11.0-15.0) % Plt Count 215 (150-400) K/uL MPV 9.00 (7.40-12.00) fL Neut % (Auto) 75.4 (48.0-80.0) % Lymph % (Auto) 15.6 L (16.0-40.0) % Terrell % (Auto) 6.8 (0.0-15.0) % Eos % (Auto) 2.0 (0.0-7.0) % Baso % (Auto) 0.2 (0.0-1.5) % Neut # (Auto) 8.6 H (1.4-5.7) K/uL Lymph # (Auto) 1.8 (0.6-2.4) K/uL Terrell # (Auto) 0.8 (0.0-0.8) K/uL Eos # (Auto) 0.2 (0.0-0.7) K/uL Baso # (Auto) 0.0 (0.0-0.1) K/uL Nucleated RBC % 0.0 /100WBC Nucleated RBCs # 0 K/uL Sodium 134 L 139 (136-148) mmol/L Potassium 3.7 3.6 (3.5-5.1) mmol/L Chloride 100 105 (98-107) mmol/L Carbon Dioxide 27.6 25.0 (21.0-32.0) mmol/L BUN 9 8 (7.0-18.0) mg/dL Creatinine 1.0 0.9 (0.8-1.3) mg/dL Est Cr Clr Drug Dosing 111.90 124.34 mL/min Estimated GFR (MDRD) > 60.0 > 60.0 ml/min Glucose 110 H 95 (74-106) mg/dL Calcium 7.6 L 7.7 L (8.5-10.1) mg/dL Magnesium 2.1 (1.8-2.4) mg/dL JUSTYN Results - Last 24 hrs: Microbiology 02/29/20 19:55 Urine Culture - Final Urine, Clean Catch Escherichia Coli 02/29/20 20:54 Aerobic Blood Culture - Preliminary Blood - Venous - Lab Draw NO GROWTH AFTER 1 DAY Anaerobic Blood Culture - Preliminary NO GROWTH AFTER 1 DAY 02/29/20 20:45 Aerobic Blood Culture - Preliminary Blood - Venous NO GROWTH AFTER 1 DAY Anaerobic Blood Culture - Preliminary NO GROWTH AFTER 1 DAY Med Orders - Current: Current Medications Acetaminophen (Tylenol) 325 mg PO Q6H PRN PRN Reason: Pain/Fever Last Admin: 03/02/20 11:10 Dose: 325 mg Documented by: Docusate Sodium (Colace) 100 mg PO DAILY PRN PRN Reason: Constipation Sodium Chloride (Normal Saline) 1,000 mls @ 125 mls/hr IV ASDIRECTED [facility] Last Admin: 03/02/20 10:53 Dose: 125 mls/hr Documented by: Ceftriaxone Sodium/Dextrose 2 (gm/ Premix) 50 mls @ 100 mls/hr IV Q24H [facility] Last Admin: 03/02/20 10:13 Dose: 100 mls/hr Documented by: Ibuprofen (Motrin) 400 mg PO Q6H PRN PRN Reason: Pain Last Admin: 03/01/20 19:42 Dose: 400 mg Documented by: Ondansetron HCl (Zofran) 4 mg IVPUSH Q4H PRN PRN Reason: Nausea Discontinued Medications Sodium Chloride (Normal Saline) 1,000 mls @ 999 mls/hr IV STAT ONE Stop: 02/29/20 20:45 Last Admin: 02/29/20 20:04 Dose: 999 mls/hr Documented by: Ciprofloxacin/Dextrose 400 mg/ (Premix) 200 mls @ 200 mls/hr IV Q12H [facility] Ceftriaxone Sodium/Dextrose 1 (gm/ Premix) 50 mls @ 100 mls/hr IV ONETIME ONE Stop: 02/29/20 21:58 Last Admin: 02/29/20 22:09 Dose: 100 mls/hr Documented by: Ceftriaxone Sodium/Dextrose 1 (gm/ Premix) 50 mls @ 100 mls/hr IV Q24H [facility] Sodium Chloride (Normal Saline) 1,000 mls @ 999 mls/hr IV BOLUS ONE Stop: 03/01/20 01:30 Last Admin: 03/01/20 00:49 Dose: 999 mls/hr Documented by: Potassium Chloride 40 meq/ (Premix) 100 mls @ 25 mls/hr IV ONETIME ONE Stop: 03/01/20 10:44 Last Admin: 03/01/20 07:46 Dose: Not Given Documented by: Potassium Chloride 40 meq/ (Premix) 100 mls @ 25 mls/hr IV ONETIME ONE Stop: 03/01/20 11:59 Last Admin: 03/01/20 08:02 Dose: 25 mls/hr Documented by: Magnesium Sulfate 4 gm/ Premix 100 mls @ 50 mls/hr IV ONETIME ONE Stop: 03/01/20 09:59 Last Admin: 03/01/20 08:34 Dose: Not Given Documented by: Ceftriaxone Sodium/Dextrose 1 (gm/ Premix) 50 mls @ 100 mls/hr IV Q24H [facility] Magnesium Sulfate 4 gm/ Premix 100 mls @ 50 mls/hr IV ONETIME ONE Stop: 03/01/20 13:59 Last Admin: 03/01/20 13:56 Dose: 50 mls/hr Documented by: Lactated Ringer's (Ringers, Lactated) 1,000 mls @ 999 mls/hr IV .BOLUS ONE Stop: 03/01/20 11:40 Last Admin: 03/01/20 10:58 Dose: 999 mls/hr Documented by: Iopamidol (Isovue-370 (76%)) 100 ml IVPUSH ONETIME STA Stop: 02/29/20 21:31 Last Admin: 02/29/20 21:31 Dose: 100 ml Documented by: Ketorolac Tromethamine (Toradol) 30 mg IVPUSH ONETIME ONE Stop: 02/29/20 21:27 Last Admin: 02/29/20 22:10 Dose: 30 mg Documented by: Potassium Chloride (Klor-Con M20) 40 meq PO ONETIME ONE Stop: 03/01/20 06:42 Last Admin: 03/01/20 07:46 Dose: Not Given Documented by: Potassium Chloride (Klor-Con M20) 40 meq PO ONETIME ONE Stop: 03/01/20 08:01 Last Admin: 03/01/20 07:34 Dose: 40 meq Documented by: - Exam General: Reports: Alert, Oriented, Cooperative, No Acute Distress Lungs: Reports: Clear to Auscultation, Normal Respiratory Effort Cardiovascular: Reports: Regular Rate, Regular Rhythm GI/Abdominal Exam: Normal Bowel Sounds, Soft, Non-Tender, Other (obese abdomen) Back Exam: Reports: Normal Inspection, Full Range of Motion Extremities: Normal Inspection, Normal Range of Motion, Non-Tender, No Pedal Edema Wound/Incisions: Reports: Healing Well Neurological: Reports: No New Focal Deficit Psy/Mental Status: Reports: Alert, Normal Affect, Normal Mood
[2020-03-05 13:03] LABS: C.TRACHOMATIS BY TMA Negative (Negative); N.GONORRHOEAE BY TMA Negative (Negative)
== END 2020-03-02 14:40 | disposition home or self-care (01) | DRG 872 ==
LOC: MW.ED 19:18 → MW.MS 21:43 → OBSVTOIN 03-01 10:54 → MW.MS 03-01 12:14
PROVIDERS: ADMIT Internal Medicine; ATTEND Internal Medicine
DX: A41.51 Sepsis due to Escherichia coli [E. coli] (principal); N30.00 Acute cystitis without hematuria; Z68.43 Body mass index [BMI] 50.0-59.9, adult; F90.9 Attention-deficit hyperactivity disorder, unspecified type; E66.01 Morbid (severe) obesity due to excess calories; Z11.59 Encounter for screening for other viral diseases
CPT/HCPCS: 36415; 74177; 74177-26; 80048; 80053; 81001; 82550; 83036; 83605; 83735; 85025; 87040; 87086; 87088; 87186; 87491; 87591; 93005; 96361; 96365; 96374; 96375; 99283; 99285-25; A9270-GY; G0378; J0696; J1885; J3475; J3480; J7030; J7040; J7120; Q9967; U0002

== ENCOUNTER 2020-08-30 06:31 | Day surgery (SDC) | payer OTHER ==
[2020-08-30] MEDS ORDERED: fentaNYL 100 MCG/2 ML SDV ONE (06:58)
[2020-08-30] MEDS ORDERED: Midazolam 1 MG/ML 2 ML SDV ONE (06:58)
--- NOTE | 2020-08-30 07:21 | PCM.PREANE ---
Preanesthetic Assessment - Anesthesia/Transfusion/Family Hx Anesthesia History: Prior Anesthesia Without Reaction Family History of Anesthesia Reaction: No Transfusion History: No Prior Transfusion(s) Intubation History: Unknown - Review of Systems General: No Symptoms Pulmonary: No Symptoms Cardiovascular: No Symptoms Gastrointestinal: No Symptoms Neurological: No Symptoms Other: Reports: None - Physical Assessment Vital Signs: Last Vital Signs Temp 36.2 C 08/30/20 06:52 Pulse 87 08/30/20 06:52 Resp 16 08/30/20 06:52 BP 166/103 H 08/30/20 06:52 Pulse Ox 100 08/30/20 06:52 Height: 5 ft 11 in Weight: 187.787 kg ASA Class: 3 Mental Status: Alert & Oriented x3 Airway Class: Mallampati = 3 Dentition: Reports: Normal Dentition Thyro-Mental Finger Breadths: 3 Mouth Opening Finger Breadths: 3 ROM/Head Extension: Limited/Partial Lungs: Clear to Auscultation, Normal Respiratory Effort Cardiovascular: Regular Rate, Regular Rhythm - Lab Values: Laboratory Last Values POC Glucose 92 mg/dL (60-110) 08/30/20 07:03 - Allergies Allergies/Adverse Reactions: Allergies Allergy/AdvReac Type Severity Reaction Status Date / Time No Known Allergies Allergy Verified 08/30/20 06:59 - Blood Blood Available: No - Anesthesia Plan Pre-Op Medication Ordered: None - Acknowledgements Anesthesia Type Planned: MAC Pt an Appropriate Candidate for the Planned Anesthesia: Yes Alternatives and Risks of Anesthesia Discussed w Pt/Guardian: Yes Pt/Guardian Understands and Agrees with Anesthesia Plan: Yes PreAnesthesia Questionnaire HEENT History: Reports: Other (See Below) Other HEENT History: uses glasses for driving at night Cardiovascular History: Reports: Hypertension Respiratory History: Reports: Sleep Apnea Other Respiratory History: uses a CPAP 1-2 x per week Neurological History: Reports: Migraines, Other (See Below) Other Neuro History: 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 Psychiatric History: Reports: ADHD Endocrine/Metabolic History: Reports: Diabetes, Type II, Obesity/BMI 30+ Other Endocrine/Metabolic History: was told he was "borderline" diabetic- to take Metformin and get "retested"- he has not been retested - Infectious Disease History Infectious Disease History: Reports: Chicken Pox - Past Surgical History Head Surgeries/Procedures: Reports: None GI Surgical History: Reports: Appendectomy, Cholecystectomy - SUBSTANCE USE Tobacco Use Status *Q: Never Tobacco User Recreational Drug Use History: No - HOME MEDS Home Medications: Home Meds Dextroamphetamine/Amphetamine [Adderall 10 mg Tablet] 30 mg PO BID 02/29/20 [History] Testosterone Cypionate [Depo-Testosterone] 200 mg IM ASDIRECTED 08/28/20 [History] metFORMIN [Glucophage XR] 500 mg PO DAILY 08/28/20 [History] - CURRENT (IN HOUSE) MEDS Current Meds: Current Medications Discontinued Medications Fentanyl (Sublimaze) Confirm Administered Dose 100 mcg .ROUTE .STK-MED ONE Stop: 08/30/20 06:59 Midazolam HCl (Versed 1 Mg/Ml) Confirm Administered Dose 2 mg .ROUTE .STK-MED ONE Stop: 08/30/20 06:59
[2020-08-30] MEDS ORDERED: Bupivacaine 0.5% 10 ML SDV ONE (07:32)
[2020-08-30] MEDS ORDERED: Octyl 2-Cyanoacrylate 1 Tube ONE (07:32)
[2020-08-30] MEDS ORDERED: ceFAZolin 1 GM Vial ONE (08:04)
[2020-08-30] MEDS ORDERED: Sodium Chloride 0.9% 20 ML ONE (08:04)
[2020-08-30] MEDS ORDERED: Lidocaine 1% 20 ML MDV ONE (08:18)
[2020-08-30] MEDS ORDERED: Ketorolac 30 MG/ML SDV ONE (08:30)
--- NOTE | 2020-08-30 09:03 | PCM.OPNOTE ---
- General Post-Op/Procedure Note Date of Surgery/Procedure: 08/30/20 Operative Procedure(s): Rt. excision posterior scalp mass Findings: 1.6 x1x 1cm excised overlying fat. 1cm in diameter lymph node. Pre Op Diagnosis: post scalp lesion Post-Op Diagnosis: same Anesthesia Technique: Local, MAC Primary Surgeon: Yolie Martinez Fluid Replacement, Intraop: 800 EBL in mLs: 10 Condition: Good
--- NOTE | 2020-08-30 09:32 | PCM48HPAN ---
Post Anesthesia Note - EVALUATION WITHIN 48HRS OF ANESTHETIC Vital Signs in Normal Range: Yes Patient Participated in Evaluation: Yes Respiratory Function Stable: Yes Airway Patent: Yes Cardiovascular Function Stable: Yes Hydration Status Stable: Yes Pain Control Satisfactory: Yes Nausea and Vomiting Control Satisfactory: Yes Mental Status Recovered: Yes Vital Signs: Last Vital Signs Temp 36.3 C 08/30/20 09:06 Pulse 74 08/30/20 09:06 Resp 16 08/30/20 09:06 BP 136/74 08/30/20 09:06 Pulse Ox 94 L 08/30/20 09:06 - COMMENTS/OBSERVATIONS Free Text/Narrative:: No anesthesia problems. Patient skipped recovery room stage of postoperative care.
--- NOTE | 2020-08-30 09:56 | PCM.POSTAN ---
POST ANESTHESIA ASSESSMENT - MENTAL STATUS Mental Status: Alert, Oriented - VITAL SIGNS Vital Signs: Last Vital Signs Temp 36.3 C 08/30/20 09:06 Pulse 74 08/30/20 09:06 Resp 16 08/30/20 09:06 BP 136/74 08/30/20 09:06 Pulse Ox 94 L 08/30/20 09:06 - RESPIRATORY Respiratory Status: Respiratory Rate WNL, Airway Patent, O2 Saturation Stable - CARDIOVASCULAR CV Status: Pulse Rate WNL, Blood Pressure Stable - GASTROINTESTINAL GI Status: No Symptoms - PAIN Pain Score: 0 - POST OP HYDRATION Hydration Status: Adequate & Stable - OBSERVATIONS Free Text/Narrative:: No anesthesia problems
--- NOTE | 2020-08-31 12:13 | OR ---
SURGEON: YOLIE MARTINEZ MD DATE OF PROCEDURE: 08/30/2020 PREOPERATIVE DIAGNOSIS: Right posterior scalp lesion. POSTOPERATIVE DIAGNOSIS: Right posterior scalp lesion. PROCEDURE PERFORMED: Excision, right posterior scalp lesion. PRIMARY SURGEON: Yolie Martinez MD ANESTHESIA: MAC, local. FLUID REPLACEMENT: 800 mL of crystalloid. ESTIMATED BLOOD LOSS: 10 mL. FINDINGS: 1.6 x 1 x 1 cm excised overlying fat. A 1 cm in diameter lymph node. COMPLICATIONS: None. INDICATIONS: The patient is a 35-year-old male who presented to my clinic with a posterior scalp lesion. He states that this causes pain and has been getting larger in size. A preoperative ultrasound showed a 1 cm lymph node in the area. The decision was made to excise this in the operating room. The patient and I discussed the procedure, expected perioperative course, and the risks. He verbalized understanding and wishes to proceed. PROCEDURE IN DETAIL: The patient was brought into the OR and placed on the OR table in a left lateral decubitus position. A time-out was completed verifying the patient's name, age, date of , allergies, and procedure to be performed. Monitored anesthesia care was induced. The right posterior neck was prepped and draped in usual standard fashion. I anesthetized the area overlying the skin lesion with local anesthetic. A 15 blade was used to make an incision overlying the marked area of concern. Using electrocautery, I then dissected down to the level of subcutaneous fat. Since I was unsure if this was a subcutaneous fat lesion versus the lymph node seen on ultrasound, I decided to excise the fat underlying my skin incision. This was done with electrocautery. Once this was freed from the surrounding subcutaneous fat, I grasped it with an Allis and elevated it. Directly underneath this area of fat was a lymph node. This was excised using sharp dissection with the Metzenbaum scissors. Once it was completely excised, both the fat and underlying lymph node were placed on the back table. They were both measured. The overlying fat measured 1.6 x 1 x 1 cm in size. The lymph node was 1 cm in diameter. They were sent to pathology, labeled as right posterior neck lesion. Then, using a combination of cautery and Surgicel, I attempted to achieve hemostasis within my wound. In several points, I ligated small bleeding vessels with interrupted 3-0 Vicryl sutures. Once hemostasis was achieved, I then closed the wound with a running locking 3-0 Ethilon suture. Sterile dressings were applied. The patient tolerated the procedure well and was taken to the PACU in stable condition. All counts were complete and correct at the end of the case. RANDAL KRISHNAMURTHY /[id number]
== END 2020-08-30 09:57 | disposition home or self-care (01) ==
LOC: MW.SDS 06:31
PROVIDERS: ATTEND Surgery
DX: M79.89 Other specified soft tissue disorders (principal); R59.0 Localized enlarged lymph nodes; I10 Essential (primary) hypertension; E66.01 Morbid (severe) obesity due to excess calories; Z79.84 Long term (current) use of oral hypoglycemic drugs; Z79.899 Other long term (current) drug therapy; E11.9 Type 2 diabetes mellitus without complications; Z90.49 Acquired absence of other specified parts of digestive tract; Z68.43 Body mass index [BMI] 50.0-59.9, adult; Z98.890 Other specified postprocedural states
CPT/HCPCS: 21011; 82962; J0690; J1885; J2250; J3010; J3490; 00300; 88305; A9270-GY

== ENCOUNTER 2020-09-09 20:30 | Emergency (ER) | payer OTHER ==
[2020-09-09] MEDS ORDERED: Octyl 2-Cyanoacrylate 1 Tube TOP ONE (21:33)
--- NOTE | 2020-09-09 21:33 | EDM.PDOC ---
ED HPI GENERAL MEDICAL PROBLEM - General Chief Complaint: Skin Complaint Stated Complaint: NEED STICHES Time Seen by Provider: 09/09/20 21:28 Source of Information: Reports: Patient History Limitations: Reports: No Limitations - History of Present Illness INITIAL COMMENTS - FREE TEXT/NARRATIVE: HISTORY AND PHYSICAL: History of present illness: Patient is a 35-year-old male who presents to the emergency room with complaints of a wound dehiscence. He states approximately 2 weeks ago he had an lymph node removed from his posterior scalp for biopsy. A few days ago he had the sutures removed and had noticed that the wound was reopening. He denies any drainage or concerns of infection at the suture site. Patient denies any fever, chills, headache, change in vision, syncope or near syncope. Denies any chest pain, back pain, shortness of breath or cough. Denies any abdominal pain, nausea, vomiting, diarrhea, constipation or dysuria. Has not noted any blood in urine or stool. Patient has been eating and drinking appropriately. Review of systems: As per history of present illness and below otherwise all systems reviewed and negative. Past medical history: As per history of present illness and as reviewed below otherwise noncontributory. Surgical history: As per history of present illness and as reviewed below otherwise noncontributory. Social history: See social history for further information Family history: As per history of present illness and as reviewed below otherwise noncontributory. Physical exam: General: Well developed and well nourished 35-year-old male. Alert and orientated x 3. Nontoxic in appearance and in no acute distress. Vital signs are stable and have been reviewed by me. Nursing notes were reviewed. HEENT: Atraumatic, normocephalic, pupils equal and reactive bilaterally, negative for conjunctival pallor or scleral icterus, mucous membranes moist, trachea midline. No drooling or trismus noted. No meningeal signs. No hot potato voice noted. Lungs: Clear to auscultation bilaterally. No wheezes, rales, or rhonchi. Normal work of breathing, no accessory muscles used. Heart: S1S2, regular rate and rhythm without overt murmur, gallops, or rubs. No JVD. No peripheral edema Skin: 1 cm partially reopened surgical laceration to right posterior scalp. No surrounding erythema or fluctuance. No drainage noted. Remaining skin is intact, warm, dry. No lesions or rashes noted. Hematologic: No petechiae or purpra. Mucosa appropriate color and normal nail bed color and refill. Extremities: Atraumatic, moves all extremities per self without difficulty or deficits, negative for cords or calf pain. Neurovascular unremarkable. Neuro: Awake, alert, oriented. Cranial nerves II through XII unremarkable. Cerebellum unremarkable. Motor and sensory unremarkable throughout. Exam nonfocal. Psychiatric: Mood and affect are appropriate. Normal thought process. Answering questions appropriately. Notes: *This patient was seen and evaluated during the 2019 SARS-CoV-2 novel coronavirus pandemic period. Community viral transmission is ongoing at time of this encounter and the emergency department is operating under pandemic response procedures. Dermabond used for wound closure. I have talked with the patient about today's findings, in addition to providing specific details for plan of care. Reassessment at the time of disposition demonstrates that the patient is in no acute distress. The patient is stable for discharge, counseling was provided and we discussed in great detail signs and symptoms that would prompt them to return to the Emergency Department. Medication, follow up and supportive care measures were reviewed and discussed. Voices understanding and is agreeable to plan of care. Denies any further questions or concerns at this time. Diagnostics: None Therapeutics: Dermabond Prescription: None Impression: Wound dehiscence Plan: 1. Please do not pull or rip off the dermabond. This will fall off on its own 2. You can alternate Tylenol and ibuprofen as needed for pain and fever management. 3. We encourage you to follow up with your primary care provider and/or recommended specialist in the next few days for re-evaluation and further care/management. Definitive disposition and diagnosis as appropriate pending reevaluation and review of above. - Related Data Allergies Allergy/AdvReac Type Severity Reaction Status Date / Time No Known Allergies Allergy Verified 09/09/20 21:13 Home Meds: Home Meds Dextroamphetamine/Amphetamine [Adderall 10 mg Tablet] 30 mg PO BID 02/29/20 [History] Testosterone Cypionate [Depo-Testosterone] 200 mg IM ASDIRECTED 08/28/20 [History] metFORMIN [Glucophage XR] 500 mg PO DAILY 08/28/20 [History] Past Medical History HEENT History: Reports: Other (See Below) Other HEENT History: uses glasses for driving at night Cardiovascular History: Reports: Hypertension Respiratory History: Reports: Sleep Apnea Other Respiratory History: uses a CPAP 1-2 x per week Neurological History: Reports: Migraines, Other (See Below) Other Neuro History: 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 Psychiatric History: Reports: ADHD Endocrine/Metabolic History: Reports: Diabetes, Type II, Obesity/BMI 30+ Other Endocrine/Metabolic History: was told he was "borderline" diabetic- to take Metformin and get "retested"- he has not been retested - Infectious Disease History Infectious Disease History: Reports: Chicken Pox - Past Surgical History Head Surgeries/Procedures: Reports: None GI Surgical History: Reports: Appendectomy, Cholecystectomy Social & Family History - Family History Family Medical History: No Pertinent Family History - Tobacco Use Tobacco Use Status *Q: Never Tobacco User - Caffeine Use Caffeine Use: Reports: Soda - Recreational Drug Use Recreational Drug Use: No ED ROS GENERAL - Review of Systems Review Of Systems: Comprehensive ROS is negative, except as noted in HPI. ED EXAM, SKIN/RASH Exam: See Below (See dictation) Course - Vital Signs Last Recorded V/S: Last Vital Signs Temp Pulse 87 09/09/20 21:14 Resp 18 09/09/20 21:14 BP 140/91 H 09/09/20 21:14 Pulse Ox 97 09/09/20 21:14 - Orders/Labs/Meds Meds: Medications Discontinued Medications Generic Name Dose Route Start Last Admin Trade Name Pedrito PRN Reason Stop Dose Admin Octyl Cyanoacrylate 1 applic 09/09/20 21:33 Dermabond Advance TOP 09/09/20 21:34 ONETIME ONE Departure - Departure Time of Disposition: 21:30 Disposition: Home, Self-Care 01 Clinical Impression: Wound dehiscence, surgical Qualifiers: Encounter type: initial encounter Qualified Code(s): T81.31XA - Disruption of external operation (surgical) wound, not elsewhere classified, initial encounter - Discharge Information Instructions: Wound Dehiscence, [id number] Referrals: Carlota Beth MD [Primary Care Provider] - Forms: ED Department Discharge Additional Instructions: The following information is given to patients seen in the emergency department who are being discharged to home. This information is to outline your options for follow-up care. We provide all patients seen in our emergency department with a follow-up referral. The need for follow-up, as well as the timing and circumstances, are variable depending upon the specifics of your emergency department visit. If you don't have a primary care physician on staff, we will provide you with a referral. We always advise you to contact your personal physician following an emergency department visit to inform them of the circumstance of the visit and for follow-up with them and/or the need for any referrals to a consulting specialist. The emergency department will also refer you to a specialist when appropriate. This referral assures that you have the opportunity for follow-up care with a specialist. All of these measure are taken in an effort to provide you with optimal care, which includes your follow-up. Under all circumstances we always encourage you to contact your private physician who remains a resource for coordinating your care. When calling for follow-up care, please make the office aware that this follow-up is from your recent emergency room visit. If for any reason you are refused follow-up, please contact the [facility] Emergency Department at and asked to speak to the emergency department charge nurse. [facility] [address] [place] [address] [place] [address] Thank you for choosing the [facility] emergency department in [place] for your medical needs today. It was a pleasure caring for you. Today you were seen in the emergency department for suture wound reopening. 1. Please do not pull or rip off the dermabond. This will fall off on its own in a few days. 2. You can alternate Tylenol and ibuprofen as needed for pain and fever management. 3. We encourage you to follow up with your primary care provider and/or recommended specialist in the next few days for re-evaluation and further care/management. Sepsis Event Note (ED) - Evaluation Sepsis Screening Result: No Definite Risk - Focused Exam Vital Signs: Vital Signs Pulse Resp BP Pulse Ox 09/09/20 21:14 87 18 140/91 H 97
== END 2020-09-09 22:13 | disposition home or self-care (01) ==
LOC: MW.ED 20:30
DX: T81.31XA Disruption of external operation (surgical) wound, not elsewhere classified, initial encounter (principal); I10 Essential (primary) hypertension; E11.9 Type 2 diabetes mellitus without complications; E66.9 Obesity, unspecified; Z68.43 Body mass index [BMI] 50.0-59.9, adult; Z79.84 Long term (current) use of oral hypoglycemic drugs; Z79.899 Other long term (current) drug therapy
CPT/HCPCS: 12020; 99282; A9270

== ENCOUNTER 2020-09-11 09:42 | Emergency (ER) | payer OTHER ==
[2020-09-11] MEDS ORDERED: Octyl 2-Cyanoacrylate 1 Tube TOP ONE (10:15)
--- NOTE | 2020-09-11 10:16 | EDM.PDOC ---
ED HPI GENERAL MEDICAL PROBLEM - General Chief Complaint: Skin Complaint Stated Complaint: INSICION OPENED Time Seen by Provider: 09/11/20 10:05 Source of Information: Reports: Patient History Limitations: Reports: No Limitations - History of Present Illness INITIAL COMMENTS - FREE TEXT/NARRATIVE: Patient is a 35-year-old male who presents today for wound decision. Patient had a procedure remove the left no the back of his right head few weeks ago and since that time the wound is open twice. They have sutures there removed by the surgeon and will became open. He was in the ED 2 days ago and was Dermabond and states today when he woke up there minus come off and the wound was again open. Patient denies any drainage redness fevers or chills. Patient denies picking or pulling to do anything to the Dermabond or wound. incision Pain Score (Numeric/FACES): 2 - Related Data Allergies Allergy/AdvReac Type Severity Reaction Status Date / Time No Known Allergies Allergy Verified 09/11/20 10:23 Home Meds: Home Meds Dextroamphetamine/Amphetamine [Adderall 10 mg Tablet] 30 mg PO BID 02/29/20 [History] Testosterone Cypionate [Depo-Testosterone] 200 mg IM ASDIRECTED 08/28/20 [History] metFORMIN [Glucophage XR] 500 mg PO DAILY 08/28/20 [History] cephALEXin [Keflex] 500 mg PO Q8H 5 Days #15 cap 09/11/20 [Rx] Past Medical History HEENT History: Reports: Other (See Below) Other HEENT History: uses glasses for driving at night Cardiovascular History: Reports: Hypertension Respiratory History: Reports: Sleep Apnea Other Respiratory History: uses a CPAP 1-2 x per week Neurological History: Reports: Migraines, Other (See Below) Other Neuro History: 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 Psychiatric History: Reports: ADHD Endocrine/Metabolic History: Reports: Diabetes, Type II, Obesity/BMI 30+ Other Endocrine/Metabolic History: was told he was "borderline" diabetic- to take Metformin and get "retested"- he has not been retested - Infectious Disease History Infectious Disease History: Reports: Chicken Pox - Past Surgical History Head Surgeries/Procedures: Reports: None GI Surgical History: Reports: Appendectomy, Cholecystectomy Social & Family History - Family History Family Medical History: No Pertinent Family History - Caffeine Use Caffeine Use: Reports: Soda ED ROS GENERAL - Review of Systems Review Of Systems: See Below Constitutional: Reports: No Symptoms HEENT: Reports: No Symptoms Respiratory: Reports: No Symptoms Cardiovascular: Reports: No Symptoms Endocrine: Reports: No Symptoms GI/Abdominal: Reports: No Symptoms : Reports: No Symptoms Musculoskeletal: Reports: No Symptoms Skin: Reports: Wound Neurological: Reports: No Symptoms Psychiatric: Reports: No Symptoms Hematologic/Lymphatic: Reports: No Symptoms Immunologic: Reports: No Symptoms ED EXAM, SKIN/RASH Exam: See Below Exam Limited By: No Limitations General Appearance: Alert, WD/WN Head: Other (small surgical open wound) Neck: Normal Inspection, Non-Tender, Full Range of Motion Respiratory/Chest: No Respiratory Distress Cardiovascular: Normal Peripheral Pulses GI/Abdominal: Normal Bowel Sounds Neurological: Alert, Oriented Course - Vital Signs Last Recorded V/S: Last Vital Signs Temp 97.3 F 09/11/20 10:20 Pulse 82 09/11/20 10:20 Resp 18 09/11/20 10:20 BP 152/99 H 09/11/20 10:20 Pulse Ox 97 09/11/20 10:20 - Orders/Labs/Meds Meds: Medications Discontinued Medications Generic Name Dose Route Start Last Admin Trade Name Freq PRN Reason Stop Dose Admin Cephalexin 250 mg 09/11/20 10:33 Keflex PO 09/11/20 10:34 ONETIME ONE Octyl Cyanoacrylate 1 applic 09/11/20 10:15 09/11/20 10:24 Dermabond Advance TOP 09/11/20 10:16 1 applic ONETIME ONE Administration - Re-Assessments/Exams Free Text/Narrative Re-Assessment/Exam: 09/11/20 10:36 By Sherita to the area and put on Keflex. Patient was able to be seen by Dr. Martinez quickly in the ER she will follow up with the patient in the next few weeks. Departure - Departure Time of Disposition: 10:37 Disposition: Home, Self-Care 01 Condition: Good Clinical Impression: Wound dehiscence - Discharge Information *PRESCRIPTION DRUG MONITORING PROGRAM REVIEWED*: Not Applicable *COPY OF PRESCRIPTION DRUG MONITORING REPORT IN PATIENT GLORIA: Not Applicable Prescriptions: cephALEXin [Keflex] 500 mg PO Q8H 5 Days #15 cap Instructions: Wound Dehiscence Referrals: Carlota Beth MD [Primary Care Provider] - Forms: ED Department Discharge Additional Instructions: The following information is given to patients seen in the emergency department who are being discharged to home. This information is to outline your options for follow-up care. We provide all patients seen in our emergency department with a follow-up referral. The need for follow-up, as well as the timing and circumstances, are variable depending upon the specifics of your emergency department visit. If you don't have a primary care physician on staff, we will provide you with a referral. We always advise you to contact your personal physician following an emergency department visit to inform them of the circumstance of the visit and for follow-up with them and/or the need for any referrals to a consulting specialist. The emergency department will also refer you to a specialist when appropriate. This referral assures that you have the opportunity for follow-up care with a specialist. All of these measure are taken in an effort to provide you with optimal care, which includes your follow-up. Under all circumstances we always encourage you to contact your private physician who remains a resource for coordinating your care. When calling for follow-up care, please make the office aware that this follow-up is from your recent emergency room visit. If for any reason you are refused follow-up, please contact the [facility] Emergency Department at and asked to speak to the emergency department charge nurse. Please follow up with your primary care physician. If you do not have a primary care physician, see below: [facility] [address] [place] [id number] [facility] [address] [place] [id number] Please keep the wound covered. Take antibiotics as prescribed. Surgeon started today please return to see her when you return from your trip from [facility]. If you have any redness drainage or increased pain please return to the ED. Sepsis Event Note (ED) - Focused Exam Vital Signs: Vital Signs Temp Pulse Resp BP Pulse Ox 09/11/20 10:20 97.3 F 82 18 152/99 H 97 - Assessment/Plan Plan: Is a 35-year-old male who presents today for wound dehiscence. Will repair and have patient follow-up with general surgery.
[2020-09-11] MEDS ORDERED: Cephalexin 250 MG Cap PO ONE (10:33)
== END 2020-09-11 10:54 | disposition home or self-care (01) ==
LOC: MW.ED 09:42
DX: T81.30XA Disruption of wound, unspecified, initial encounter (principal); I10 Essential (primary) hypertension; E11.9 Type 2 diabetes mellitus without complications; E66.9 Obesity, unspecified; Z79.84 Long term (current) use of oral hypoglycemic drugs; Z68.43 Body mass index [BMI] 50.0-59.9, adult
CPT/HCPCS: 99282; A9270

== ENCOUNTER 2020-12-11 14:43 | Emergency (ER) | payer OTHER ==
[2020-12-11] MEDS ORDERED: Sodium Chloride 0.9% 2.5 ML Syringe FLUSH PRN (15:02)
[2020-12-11] MEDS ORDERED: Sodium Chloride 0.9% 10 ML Syringe FLUSH PRN (15:02)
--- NOTE | 2020-12-11 15:03 | EDM.PDOC ---
ED HPI GENERAL MEDICAL PROBLEM - General Chief Complaint: General Stated Complaint: HIGH NA Time Seen by Provider: 12/11/20 14:44 - History of Present Illness INITIAL COMMENTS - FREE TEXT/NARRATIVE: History of present illness: [] The patient was called in by his clinic doctor because his sodium was 151. He says he feels pretty good may be not as much energy as usual. 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 He has had gradually decreasing testosterone levels below the normal limits as I reviewed the recent labs. Patient has normal appetite a little less energy than he would expect recently although he is changing shifts nights to days. He also has no nausea vomiting fever chills diarrhea change in bowel habits or change in urine habits. Review of systems: As per history of present illness and below otherwise all systems reviewed and negative. Past medical history: As per history of present illness and as reviewed below otherwise noncontributory. Surgical history: As per history of present illness and as reviewed below otherwise noncontributory. Social history: No reported history of drug or alcohol abuse. Family history: As per history of present illness and as reviewed below otherwise noncontributory. Physical exam: Constitutional -BMI 58.6 - well developed, well-nourished and in no acute dis tress HEENT - normocephalic, no evidence of trauma - external nose and mouth normal - no mass in neck and no JVD - mucosae moist EYES - full EOM, PERRL, no icterus - no evidence of inflammation, injection, or drainage Respiratory - no respiratory distress, equal bilateral expansion, lungs clear to auscultation and no abnormal lung sounds Cardiovascular - Regular Rhythm with S1 and S2 appreciated and no murmur, gallop or rub. GI - abdomen soft without distension or organomegaly - normal bowel sounds - no guard or rebound Musculoskeletal no gross deformity of long bones or joints - no tenderness, swelling or edema Neurologic - Alert and oriented times four - CN II-XII grossly intact - motor sensory and coordination symmetrically normal Psychiatric - appropriate mood and affect with normal thought content Hematologic - No petechiae or purpura - mucosa appropriate color and sclera not pale - normal nail bed color and refill Integument - no rash or evidence of trauma - normal turgor Diagnostics: [] Therapeutics: [] Impression: [] Plan: [] Definitive disposition and diagnosis as appropriate pending reevaluation and review of above. - Related Data Allergies Allergy/AdvReac Type Severity Reaction Status Date / Time No Known Allergies Allergy Verified 09/11/20 10:23 Home Meds: Home Meds Dextroamphetamine/Amphetamine [Adderall 10 mg Tablet] 30 mg PO BID 02/29/20 [History] Testosterone Cypionate [Depo-Testosterone] 200 mg IM ASDIRECTED 08/28/20 [History] metFORMIN [Glucophage XR] 500 mg PO DAILY 08/28/20 [History] Past Medical History HEENT History: Reports: Other (See Below) Other HEENT History: uses glasses for driving at night Cardiovascular History: Reports: Hypertension Respiratory History: Reports: Sleep Apnea Other Respiratory History: uses a CPAP 1-2 x per week Neurological History: Reports: Migraines, Other (See Below) Other Neuro History: 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 Psychiatric History: Reports: ADHD Endocrine/Metabolic History: Reports: Diabetes, Type II, Obesity/BMI 30+ Other Endocrine/Metabolic History: was told he was "borderline" diabetic- to take Metformin and get "retested"- he has not been retested - Infectious Disease History Infectious Disease History: Reports: Chicken Pox - Past Surgical History Head Surgeries/Procedures: Reports: None GI Surgical History: Reports: Appendectomy, Cholecystectomy Social & Family History - Family History Family Medical History: No Pertinent Family History - Caffeine Use Caffeine Use: Reports: Soda ED ROS GENERAL - Review of Systems Review Of Systems: Comprehensive ROS is negative, except as noted in HPI. ED EXAM, GENERAL - Physical Exam Exam: See Below Free Text/Narrative:: My physical exam is in the HPI Course - Vital Signs Text/Narrative:: 1700 hrs. patient's labs seem to indicate that the 151 sodium was a spurious finding. He has no symptoms. He will be given a work note for today because he switching from days 9 spent the entire day awake with us. Last Recorded V/S: Last Vital Signs Temp 36.2 C 12/11/20 15:09 Pulse 90 12/11/20 15:09 Resp 15 12/11/20 15:09 BP 142/93 H 12/11/20 15:09 Pulse Ox 96 12/11/20 15:09 - Orders/Labs/Meds Orders: Active Orders 24 hr Category Date Time Status UA W/JUSTYN RFLX IF INDICATED [URIN] Stat Lab 12/11/20 15:03 Ordered Dextrose 5% in Water 1,000 ml Med 12/11/20 15:15 Active IV ASDIRECTED Sodium Chloride 0.9% [Saline Flush] Med 12/11/20 15:02 Active 10 ml FLUSH ASDIRECTED PRN Sodium Chloride 0.9% [Saline Flush] Med 12/11/20 15:02 Active 2.5 ml FLUSH ASDIRECTED PRN Saline Lock Insert [OM.PC] Stat Oth 12/11/20 15:02 Ordered Medication Orders Dextrose/Water (Dextrose 5% In Water) 1,000 mls @ 150 mls/hr IV ASDIRECTED ZARINA Last Admin: 12/11/20 16:37 Dose: 150 mls/hr Documented by: SUSANNAH Sodium Chloride (Sodium Chloride 0.9% 10 Ml Syringe) 10 ml FLUSH ASDIRECTED PRN PRN Reason: Keep Vein Open Last Admin: 12/11/20 16:22 Dose: 10 ml Documented by: ISHMAEL Sodium Chloride (Sodium Chloride 0.9% 2.5 Ml Syringe) 2.5 ml FLUSH ASDIRECTED PRN PRN Reason: Keep Vein Open Last Admin: 12/11/20 16:22 Dose: 2.5 ml Documented by: [email or web address] Labs: Laboratory Tests 12/11/20 12/11/20 Range/Units 15:05 15:47 WBC 8.17 (4.0-11.0) K/uL RBC 5.05 (4.50-5.90) M/uL Hgb 14.3 (13.0-17.0) g/dL Hct 41.0 (38.0-50.0) % MCV 81.2 (80.0-98.0) fL MCH 28.3 (27.0-32.0) pg MCHC 34.9 (31.0-37.0) g/dL RDW Std Deviation 38.9 (28.0-62.0) fl RDW Coeff of Licha 13 (11.0-15.0) % Plt Count 249 (150-400) K/uL MPV 9.30 (7.40-12.00) fL Neut % (Auto) 63.2 (48.0-80.0) % Lymph % (Auto) 26.2 (16.0-40.0) % [place] % (Auto) 7.2 (0.0-15.0) % Eos % (Auto) 3.2 (0.0-7.0) % Baso % (Auto) 0.2 (0.0-1.5) % Neut # (Auto) 5.2 (1.4-5.7) K/uL Lymph # (Auto) 2.1 (0.6-2.4) K/uL [place] # (Auto) 0.6 (0.0-0.8) K/uL Eos # (Auto) 0.3 (0.0-0.7) K/uL Baso # (Auto) 0.0 (0.0-0.1) K/uL Nucleated RBC % 0.0 /100WBC Nucleated RBCs # 0 K/uL Sodium 138 (136-148) mmol/L Potassium 3.6 (3.5-5.1) mmol/L Chloride 103 (98-107) mmol/L Carbon Dioxide 26.1 (21.0-32.0) mmol/L BUN 9 (7.0-18.0) mg/dL Creatinine 0.9 (0.8-1.3) mg/dL Est Cr Clr Drug Dosing 124.34 mL/min Estimated GFR (MDRD) > 60.0 ml/min Glucose 132 H (74-106) mg/dL Calcium 7.4 L (8.5-10.1) mg/dL Magnesium 1.9 (1.8-2.4) mg/dL Total Bilirubin 0.2 (0.2-1.0) mg/dL AST 16 (15-37) IU/L ALT 32 (14-63) IU/L Alkaline Phosphatase 43 L (46-116) U/L Total Protein 6.9 (6.4-8.2) g/dL Albumin 3.2 L (3.4-5.0) g/dL Globulin 3.7 (2.6-4.0) g/dL Albumin/Globulin Ratio 0.9 (0.9-1.6) Meds: Medications Generic Name Dose Route Start Last Admin Trade Name Freq PRN Reason Stop Dose Admin Dextrose/Water 1,000 mls @ 150 mls/hr 12/11/20 15:15 12/11/20 16:37 Dextrose 5% In Water IV 150 mls/hr ASDIRECTED ZARINA Administration Sodium Chloride 10 ml 12/11/20 15:02 12/11/20 16:22 Sodium Chloride 0.9% 10 Ml Syringe FLUSH 10 ml ASDIRECTED PRN Administration Keep Vein Open Sodium Chloride 2.5 ml 12/11/20 15:02 12/11/20 16:22 Sodium Chloride 0.9% 2.5 Ml Syringe FLUSH 2.5 ml ASDIRECTED PRN Administration Keep Vein Open Departure - Departure Time of Disposition: 17:00 Disposition: Home, Self-Care 01 Clinical Impression: Fatigue - Discharge Information Instructions: Fatigue, Weakness, [id number] Referrals: Carlota Beth MD [Primary Care Provider] - Forms: ED Department Discharge Additional Instructions: The following information is given to patients seen in the emergency department who are being discharged to home. This information is to outline your options for follow-up care. We provide all patients seen in our emergency department with a follow-up referral. The need for follow-up, as well as the timing and circumstances, are variable depending upon the specifics of your emergency department visit. If you don't have a primary care physician on staff, we will provide you with a referral. We always advise you to contact your personal physician following an emergency department visit to inform them of the cir cumstance of the visit and for follow-up with them and/or the need for any referrals to a consulting specialist. The emergency department will also refer you to a specialist when appropriate. This referral assures that you have the opportunity for follow-up care with a specialist. All of these measure are taken in an effort to provide you with optimal care, which includes your follow-up. Under all circumstances we always encourage you to contact your private physician who remains a resource for coordinating your care. When calling for follow-up care, please make the office aware that this follow-up is from your recent emergency room visit. If for any reason you are refused follow-up, please contact the [facility] Emergency Department at and asked to speak to the emergency department charge nurse. [facility] [address] [place] [id number] [facility] [address] [place] [address] Your lavb results are normal at todays visit. We recommend you follow up with your PCP. We have listed the phone numbers for the local clinics above. Please return to the ED if symptoms are to worsen or change. Sepsis Event Note (ED) - Focused Exam Vital Signs: Vital Signs Temp Pulse Resp BP Pulse Ox 12/11/20 15:09 36.2 C 90 15 142/93 H 96 - My Orders Last 24 Hours: My Active Orders 12/11/20 15:02 Sodium Chloride 0.9% [Saline Flush] 10 ml FLUSH ASDIRECTED PRN Sodium Chloride 0.9% [Saline Flush] 2.5 ml FLUSH ASDIRECTED PRN Saline Lock Insert [OM.PC] Stat 12/11/20 15:03 UA W/JUSTYN RFLX IF INDICATED [URIN] Stat 12/11/20 15:15 Dextrose 5% in Water 1,000 ml IV ASDIRECTED - Assessment/Plan Last 24 Hours: My Active Orders 12/11/20 15:02 Sodium Chloride 0.9% [Saline Flush] 10 ml FLUSH ASDIRECTED PRN Sodium Chloride 0.9% [Saline Flush] 2.5 ml FLUSH ASDIRECTED PRN Saline Lock Insert [OM.PC] Stat 12/11/20 15:03 UA W/JUSTYN RFLX IF INDICATED [URIN] Stat 12/11/20 15:15 Dextrose 5% in Water 1,000 ml IV ASDIRECTED
[2020-12-11] MEDS ORDERED: Dextrose 5% in Water 1,000 ML IV SCH (15:15)
[2020-12-11 16:55] LABS: BLOOD UREA NITROGEN,BUN 9 mg/dL (7.0-18.0); CARBON DIOXIDE,CO2 26.1 mmol/L (21.0-32.0); CHLORIDE,CL 103 mmol/L (98-107); GLUCOSE RANDOM 132 mg/dL (74-106); POTASSIUM,K 3.6 mmol/L (3.5-5.1); SODIUM,NA 138 mmol/L (136-148)
== END 2020-12-11 17:19 | disposition home or self-care (01) ==
LOC: MW.ED 14:43
DX: R53.83 Other fatigue (principal); I10 Essential (primary) hypertension; E11.9 Type 2 diabetes mellitus without complications; E66.9 Obesity, unspecified; Z68.43 Body mass index [BMI] 50.0-59.9, adult; Z79.84 Long term (current) use of oral hypoglycemic drugs; Z79.899 Other long term (current) drug therapy
CPT/HCPCS: 80053; 83735; 85025; 99283; J7060

== ENCOUNTER 2021-05-13 18:01 | Emergency (ER) | payer OTHER | END 2021-05-13 19:39 | disposition left against medical advice (07) | LOC: MW.ED 18:01 | DX: N39.0 Urinary tract infection, site not specified (principal); Z53.21 Procedure and treatment not carried out due to patient leaving prior to being seen by health care provider ==

== ENCOUNTER 2024-11-22 19:21 | Emergency (ER) | payer BC ==
[2024-11-22 20:44] LABS: BASOPHILS ABSOLUTE AUTO 0.04 K/uL (0.00-0.20); BASOPHILS PERCENT AUTO 0.4 % (0.0-1.0); EOSINOPHILS PERCENT AUTO 3.4 % (0.0-6.0); HEMATOCRIT 43.3 % (42.0-52.0); HEMOGLOBIN 13.9 g/dL (14.0-18.0); IMMATURE GRAN ABSOLUTE AUTO 0.03 K/uL (0.00-0.05); IMMATURE GRAN PERCENT AUTO 0.3 % (0.0-0.4); LYMPHOCYTES ABSOLUTE AUTO 2.72 K/uL (1.00-4.80); LYMPHOCYTES PERCENT AUTO 30.5 % (24.0-44.0); MEAN CORPUSCULAR HGB CONC 32.1 g/dL (32.0-36.0); MEAN CORPUSCULAR VOLUME 74.7 fL (83.0-99.0); MEAN PLATELET VOLUME 8.6 fL (9.4-12.4); MONOCYTES ABSOLUTE AUTO 0.56 K/uL (0.00-0.80); MONOCYTES PERCENT AUTO 6.3 % (0.0-8.0); NEUTROPHILS ABSOLUTE AUTO 5.27 K/uL (1.80-7.70); NEUTROPHILS PERCENT AUTO 59.1 % (41.0-71.0); PLATELET COUNT,PLT 288 K/uL (150-400); WHITE BLOOD CELL COUNT,WBC 8.92 K/uL (3.9-11.3)
[2024-11-22 21:18] LABS: ALANINE AMINOTRANSFERASE,ALT 37 IU/L (14-63); ALBUMIN 3.6 g/dL (3.4-5.0); ALKALINE PHOSPHATASE 49 U/L (46-116); ASPARTATE AMNIOTRANSFERASE,AST 20 IU/L (15-37); BILIRUBIN TOTAL 0.4 mg/dL (0.2-1.0); BLOOD UREA NITROGEN,BUN 11 mg/dL (7.0-18.0); CALCIUM 8.3 mg/dL (8.5-10.1); CHLORIDE,CL 102 mmol/L (98-107); CREATININE 1.2 mg/dL (0.8-1.3); GLUCOSE RANDOM 116 mg/dL (74-106); POTASSIUM,K 3.9 mmol/L (3.5-5.1); PRO B-TYPE NATRIUR PEPT,BNPPRO 8 pg/mL (0-125); PROTEIN TOTAL,TP 7.1 g/dL (6.4-8.2); SODIUM,NA 137 mmol/L (136-148)
[2024-11-22 21:20] LABS: ESTIMATED GFR 80 mL/min (>60)
== END 2024-11-22 21:43 | disposition home or self-care (01) ==
LOC: MW.ED 19:21
DX: M79.89 Other specified soft tissue disorders (principal); Z75.3 Unavailability and inaccessibility of health-care facilities; I10 Essential (primary) hypertension; Z79.899 Other long term (current) drug therapy; Z90.49 Acquired absence of other specified parts of digestive tract
CPT/HCPCS: 36415; 71046; 71046-26; 735902650; 73590-50; 80053; 83880; 85025; 99283